=== PATIENT | male | born 1970 | race Caucasian/White ===

== ENCOUNTER 2019-01-09 21:57 | Inpatient (IN) | payer MEDICARE, OTHER ==
[~2019-01-09] VITALS: Ht 180.3 cm; Wt 64.5 kg
[~2019-01-09 21:57] MED LIST: Amoxicillin500 MG PO; NAPR550 PO; Peridex480 ML PO
[2019-01-09 22:25] LABS: Calcium, Ionized (POC) 1.15 mmol/L (1.10-1.46); Chloride (POC) 101 mmol/L (98-108); Creatinine (POC) 1.4 mg/dL (0.8-1.3); Glucose (ISTAT POC) 127 mg/dL (70-99); Hemoglobin (POC) 13.6 g/dL (13.5-17.5); Potassium (POC) 3.5 mmol/L (3.5-5.5); Sodium (POC) 133 mmol/L (135-148); Total CO2 (POC) 19 mmol/L (21-32)
[2019-01-09 22:38] LABS: Hemoglobin 12.7 g/dL (13.5-17.5); Mean Corpuscular HGB Conc 33.4 g/dL (31.5-36.5); Mean Corpuscular Volume 90 fL (80-100); Mean Platelet Volume 9.9 fL (9.1-12.4); Platelet Count 234 K/mm3 (150-400); RDW Coefficient Variation 13.9 % (11.7-14.2); RDW Standard Deviation 45.7 fL (35.1-46.3); Red Blood Cell Count 4.23 M/mm3 (4.30-5.90)
[2019-01-09 22:53] LABS: International Normalized Ratio 0.98; Prothrombin Time Results 10.4 Sec (9.7-11.5)
[2019-01-09 22:58] LABS: Alanine Aminotransfer (ALT/SGP 35 U/L (12-78); Albumin, Blood 3.2 g/dL (3.4-5.0); Albumin/Globulin Ratio 0.9 (0.8-1.8); Alk Phos 133 U/L (50-136); Anion Gap 10 mmol/L (6-16); Aspartate Aminotrans (AST/SGOT 22 U/L (12-37); Bilirubin, Total 0.8 mg/dL (0.1-1.0); Blood Urea Nitrogen 14 mg/dL (8-24); Bun/Creatinine Ratio 12.1 (12.0-20.0); CHOL/HDL RATIO 2.3; CO2, Blood 23 mmol/L (21-32); Chloride, Blood 104 mmol/L (98-108); Cholesterol 159 mg/dL (50-200); Creatinine, Blood 1.16 mg/dL (0.60-1.20); Globulin, Blood 3.5 g/dL (2.2-4.0); Glomerular Filtration Rate >60 (60-); Glucose, Blood 126 mg/dL (70-99); HDL Cholesterol 68 mg/dL (>39); LDL/HDL RATIO 1.2; Low Density Lipoprotein Chol 79 mg/dL (0-110); Magnesium, Blood 1.4 mg/dL (1.6-2.4); Potassium, Blood 3.4 mmol/L (3.5-5.5); Sodium, Blood 137 mmol/L (136-145); Total Protein, Blood 6.7 g/dL (6.4-8.2); Triglycerides 59 mg/dL (30-160); Troponin I 0.196 ng/mL (0.000-0.040); Very Low Density Lipoprot Chol 11 mg/dL (6-32)
--- NOTE | 2019-01-10 02:46 | NUR ---
ARRIVAL TO ICU PT ARRIVED TO ICU AT 0030 FROM CHANNELING MACHINE RUNNER. PT DROWSY, BUT AROUSES EASILY AND IS ORIENTED, CALM AND COOPERATIVE. RADIAL ACCESS SITE C/D/I WITH TR BAND IN PLACE. VITALS STABLE WITH LEVOPHED. PT DOES REPORT CHEST PAIN BUT STATES IT IS IMPROVED. ADMISSION HISTORY AND ASSESSMENT COMPLETED PER PATIENT. PT DOES STATE HE IS ON ANTIBIOTICS FOR VARIOUS UNHEALING SKIN SCABS, BUT CAN'T RECALL THE NAME OR THE DOSE. HE ALSO STOPPED GOING TO A DOCTOR SO NO LONGER TAKES THYROID MEDICATIONS DUE TO LACK OF PRESCRIPTION. THEREFORE, MED REC INCOMPLETE DUE TO LACK OF EXACT INFORMATION. SINCE ARRIVAL TO UNIT, LEVOPHED TITRATED OFF PT MAINTAINING BLOOD PRESSURE MAPS GREATER THAN 65. DR. LITTLE HAS BEEN BY TO SEE HIM POSTOP. DR. SON CONSULTED AND HAS ALSO BEEN TO BEDSIDE. REPEAT EKG PER ORDERS COMPLETED, SEE PAPER CHART. PT REQUESTING JUICE, PROVIDED. SEE FULL ASSESSMENTS AND FLOWSHEETS FOR DETAILS.
[2019-01-10 03:30] LABS: U Amphetamine Screen DETECTED; U Barbituate Screen Not Detected; U Benzodiazapine Screen DETECTED; U Buprenorphine Screen Not Detected; U Cannabinoids Screen DETECTED; U Cocaine Screen Not Detected; U Methadone Screen Not Detected; U Methamphetamine Screen DETECTED; U Opiates Screen Not Detected; U Oxycodone Screen Not Detected; U Phencyclidine Screen Not Detected; U Propoxyphene Screen Not Detected
--- NOTE | 2019-01-10 05:00 | NUR ---
SKIN SPOKE WITH DR SON PT REPORST HE HAS BEEN TAKING ANTIBIOTICS FOR RECURRENT SCABS ON SKIN BUT DOES NOT KNOW THE NAME OF THE ANTIBIOTICS. DR. SON TO BEDSIDE TO ASSESS SKIN. NO NEW ORDERS.
--- NOTE | 2019-01-10 06:30 | NUR ---
SUMMARY SINCE PREVIOUS NOTE, PT HAS SLEPT, AROUSING EASILY FOR REASSESSMENTS. PT HAS DENIED CHEST PAIN OR SHORTNESS OF BREATH SINCE PREVIOUS NOTE. RR ELEVATED, 02 SATS GREATER THAN 90 ON ROOM AIR. LEVOPHED OFF, VITALS STABLE. HR CONTINUES TO BE 110'S. TR BAND REMOVED WITH NO COMPLICATIONS, CLEAR DRESSING PLACED. PT EDUCATED ON RESTRICTIONS. PT HAS USED URINAL IN BED FOR ELIMINATION HE REPORTS FEELING WEAK. DECREASED URINE OUTPUT, NORMAL SALINE INFUSING AT 150 ML/HR. OTHERWISE, NO CHANGES FROM INITIAL ASSESSMENTS.
--- NOTE | 2019-01-10 06:58 | NUR ---
REPORT TO KARIN SAVAGE TO ASSUME CARE
--- NOTE | 2019-01-10 07:15 | NUR ---
ASSUMED CARE OF PATIENT; SEE ASSESSMENT CHARTING FOR DETAILS. PATIENT SLEEPY; ROUSES TO VERBAL STIMULI BUT DRIFTS OFF TO SLEEP WHEN NOT DISTURBED; ORIENTED AND COOPERATIVE; DENIES ACUTE DISCOMFORT. MONITOR NSR TO ST WITH RATE MOSTLY LOW 100'S; SBP HIGH 80'S TO LOW 100'S; MAP 60'S. LOW GRADE FEVER (100.4); ROOM TEMP. REDUCED AND EXTRA BLANKETS REMOVED. VOIDED 300+ OF MED. QUINTON URINE INTO URINAL. TR BAND SITE TO R WRIST INTACT; NO DRAINAGE, SWELLING OR HEMATOMA; DRESSING D/I AND ARMBOARD IN PLACE.
--- NOTE | 2019-01-10 09:50 | NUR ---
DR. LITTLE HERE (INTERVENTIONALIST); WANTS PATIENT TO REMAIN IN HOSPITAL ANOTHER DAY BUT CAN BE TRANSFERRED TO A STEP DOWN UNIT (PCU); SEE FURTHER ORDERS.
[2019-01-10 10:10] LABS: BASOPHILS ABSOLUTE AUTO 0.01 K/mm3 (0.00-0.23); BASOPHILS PERCENT AUTO 0 % (0-2); EOSINOPHILS ABSOLUTE AUTO 0.27 K/mm3 (0.00-0.68); EOSINOPHILS PERCENT AUTO 7 % (0-6); Hemoglobin 11.3 g/dL (13.5-17.5); IMMATURE GRAN ABSOLUTE AUTO 0.07 K/mm3 (0.00-0.10); IMMATURE GRAN PERCENT AUTO 2 % (0-1); LYMPHOCYTES ABSOLUTE AUTO 0.09 K/mm3 (0.84-5.20); LYMPHOCYTES PERCENT AUTO 2 % (21-46); MONOCYTES ABSOLUTE AUTO 0.18 K/mm3 (0.16-1.47); MONOCYTES PERCENT AUTO 5 % (4-13); Mean Corpuscular HGB 30.4 pg (26.0-34.0); Mean Corpuscular HGB Conc 34.2 g/dL (31.5-36.5); Mean Corpuscular Volume 89 fL (80-100); Mean Platelet Volume 9.8 fL (9.1-12.4); NEUTROPHILS ABSOLUTE AUTO 3.42 K/mm3 (1.96-9.15); NEUTROPHILS PERCENT AUTO 85 % (41-73); Platelet Count 161 K/mm3 (150-400); RDW Coefficient Variation 13.7 % (11.7-14.2); Red Blood Cell Count 3.72 M/mm3 (4.30-5.90); White Blood Cell Count 4.04 K/mm3 (4.00-11.30)
[2019-01-10 10:27] LABS: Alanine Aminotransfer (ALT/SGP 58 U/L (12-78); Albumin, Blood 2.4 g/dL (3.4-5.0); Albumin/Globulin Ratio 0.8 (0.8-1.8); Alk Phos 90 U/L (50-136); Anion Gap 10 mmol/L (6-16); Aspartate Aminotrans (AST/SGOT 193 U/L (12-37); Bilirubin, Total 0.7 mg/dL (0.1-1.0); Blood Urea Nitrogen 15 mg/dL (8-24); Bun/Creatinine Ratio 15.4 (12.0-20.0); CO2, Blood 18 mmol/L (21-32); Calcium, Blood 7.3 mg/dL (8.5-10.1); Chloride, Blood 105 mmol/L (98-108); Creatinine, Blood 0.98 mg/dL (0.60-1.20); Globulin, Blood 2.9 g/dL (2.2-4.0); Glomerular Filtration Rate >60 (60-); Glucose, Blood 109 mg/dL (70-99); Magnesium, Blood 1.8 mg/dL (1.6-2.4); Potassium, Blood 4.6 mmol/L (3.5-5.5); Sodium, Blood 133 mmol/L (136-145); Total Protein, Blood 5.3 g/dL (6.4-8.2)
--- NOTE | 2019-01-10 14:13 | NUR ---
T/C FROM LAB TO INFORM RN THAT PATIENT HAS CRITICAL LAB VALUE: TOPONIN LEVEL UP TO 64.6. R/N T/C TO DR. LITTLE; WANTS TROPONIN LEVEL RECHECKED IN AM; NOT WORRIED; THINKS READING SHOULD PEAK BY 2400 AND THEN WILL START TRENDING DOWN.
--- NOTE | 2019-01-10 15:57 | NUR ---
PATIENT'S SBP 70'S TO 80'S AT TIMES; DENIES VERTIGO, NAUSEA ETC BUT REMAINS VERY FATIGUED AND SLEEPS WHEN NOT DISTURBED. FLUIDS ENCOURAGED BY RN. RN INFORMED DR. LITTLE RE: HYPOTENSION, ETC.; NO NEW ORDERS AT THIS TIME.
--- NOTE | 2019-01-10 17:04 | NUR ---
SUMMARY: SLEEPING MOST OF DAY BUT ABLE TO REPOSITION SELF IN BED. LUNGS CLEAR AND BIOX. HIGH 90'S ON ROOM AIR. VOIDING MED. AMOUNTS OF URINE. IVF'S COMPLETED; ORAL FLUIDS ENCOURAGED. DENIES CHEST PAIN. SBP IMPROVED AFTERNOON HAS PROGRESSED. REMAINS PCU STATUS BUT NO ROOMS AVAILABLE AT THIS TIME.
--- NOTE | 2019-01-10 19:30 | NUR ---
ASSUMED CARE OF PT, REPORT RCV'D FROM KARIN CORTEZ. PT ALERT AND ORIENTED, COMPLAINING OF 8/10 HEADACHE PAIN. PT DENIES CHEST PAIN OR NAUSEA. VSS. NSR. RIGHT RADIAL ACCESS SITE SOFT, NONTENDER, NO EVIDENCE OF HEMATOME. ARMBOARD IN PLACE AND PT REMINDED TO MINIMIZE MOVEMENT. SEE FULL SHIFT ASSESSMENT.
--- NOTE | 2019-01-10 20:00 | NUR ---
PT'S SIGNIFICANT OTHER (MEHRDAD) CALLED AND WAS UPDATED WITH PT'S STATUS AND PLAN FOR PT TO BE DISCHARGED TOMORROW.
[2019-01-11 04:20] LABS: Hematocrit 35.8 % (37.0-53.0); Hemoglobin 12.4 g/dL (13.5-17.5); Mean Corpuscular HGB 30.3 pg (26.0-34.0); Mean Corpuscular HGB Conc 34.6 g/dL (31.5-36.5); Mean Corpuscular Volume 88 fL (80-100); Mean Platelet Volume 10.7 fL (9.1-12.4); Platelet Count 114 K/mm3 (150-400); RDW Coefficient Variation 13.8 % (11.7-14.2); Red Blood Cell Count 4.09 M/mm3 (4.30-5.90); White Blood Cell Count 3.05 K/mm3 (4.00-11.30)
[2019-01-11 04:41] LABS: Anion Gap 7 mmol/L (6-16); Blood Urea Nitrogen 14 mg/dL (8-24); Bun/Creatinine Ratio 16.3 (12.0-20.0); CO2, Blood 21 mmol/L (21-32); Calcium, Blood 7.7 mg/dL (8.5-10.1); Chloride, Blood 109 mmol/L (98-108); Creatinine, Blood 0.86 mg/dL (0.60-1.20); Glomerular Filtration Rate >60 (60-); Glucose, Blood 88 mg/dL (70-99); Magnesium, Blood 2.1 mg/dL (1.6-2.4); Sodium, Blood 137 mmol/L (136-145)
--- NOTE | 2019-01-11 06:03 | NUR ---
SHIFT SUMMARY NO ACUTE CHANGES OVERNIGHT. PT CONTINUES TO DENY NEEDS. NO C/O CHEST PAIN, NAUSEA/VOMITING. RIGHT RADIAL ACCESS SITE REMAINS UNCHANGED, SOFT/NON-TENDER. PT STILL HAS DECREASED APPETITE BUT INCREASED AMOUNT OF ORAL FLUIDS WITH ADEQUATE URINARY OUTPUT. VSS. WILL REPORT TO DAYSHIFT NURSE.
--- NOTE | 2019-01-11 18:07 | NUR ---
PT ARRIVED TO THE MEDICAL FLOOR FROM THE ICU AROUND 1730, A/OX3, COOPERATIVE, THE PT APPEARS TO BE BREATHING EASILY ON RA, TELE WAS APPLIED, THE PT WAS ORIENTED TO THE ROOM LAYOUT AND CALL SYSTEM, CALL LIGHT IN REACH, I AGREE WITH THE AM ASSESSMENT PERFORMED BY THE PARTS BACK COUNTER MAN
--- NOTE | 2019-01-12 04:00 | NUR ---
SHIFT SUMMARY PT IS ALERT, ORIENTED AND INDEPENDENT. NO COMPLAINTS OF CHEST PAIN NOTED THIS SHIFT. NO CALLS FROM TELEMETRY WERE RECIEVED BY THIS RN. PT DID COMPLAIN OF A BOUT OF DIARRHEA WHICH HE CONTRIBUTED TO THE FOOD. THE PT STATED THAT WHEN HE WIPED AFTER THE DIARRHEA, THERE WAS A SMEAR OF BLOOD ON THE TOILET PAPER. THIS RN WASN'T ABLE TO VERIFY IT THE CONTENTS OF THE TOILET BOWL APPEARED YELLOW ONLY. A HAT WAS PLACED TO CATCH THE NEXT BM, SO FURTHER ASSESSMENT COULD BE MADE. NO OTHER COMPLAINTS FROM THE PT AT THIS TIME. WILL CONTINUE TO MONITOR.
[2019-01-12 09:32] LABS: Hematocrit 39.3 % (37.0-53.0); Hemoglobin 13.5 g/dL (13.5-17.5); Mean Corpuscular HGB 29.5 pg (26.0-34.0); Mean Corpuscular HGB Conc 34.4 g/dL (31.5-36.5); Mean Corpuscular Volume 86 fL (80-100); Mean Platelet Volume 12.3 fL (9.1-12.4); Platelet Count 100 K/mm3 (150-400); RDW Coefficient Variation 13.7 % (11.7-14.2); Red Blood Cell Count 4.58 M/mm3 (4.30-5.90); White Blood Cell Count 2.93 K/mm3 (4.00-11.30)
[2019-01-12 09:52] LABS: BAND PERCENT MAN 8 % (0-8); BASOPHILS PERCENT MAN 0 % (0-2); EOSINOPHILS ABSOLUTE MAN 0.35 K/mm3 (0.00-0.68); EOSINOPHILS PERCENT MAN 12 % (0-6); LYMPHOCYTES ABSOLUTE MAN 1.11 K/mm3 (0.84-5.20); LYMPHOCYTES PERCENT MAN 38 % (21-46); MONOCYTES ABSOLUTE MAN 0.29 K/mm3 (0.16-1.47); MONOCYTES PERCENT MAN 10 % (4-13); NEUTROPHILS ABSOLUTE MAN 1.17 K/mm3 (1.96-9.15); SEG NEUTROPHILS PERCENT MAN 32 % (41-73); TOTAL CELLS COUNTED 100
[2019-01-12] MEDS ORDERED: ATOR40TA PO (13:02)
[2019-01-12] MEDS ORDERED: Aspirin EC81 MG PO (13:02)
[2019-01-12] MEDS ORDERED: CLOP75 PO (13:02)
[2019-01-12] MEDS ORDERED: Toprol Xl25 MG PO (13:03)
[2019-01-12] MEDS ORDERED: LISI5 PO (13:03)
[2019-01-12] MEDS ORDERED: NITR.4SL SL (13:06)
--- NOTE | 2019-01-12 14:31 | NUR ---
DISCHARGE INSTRUCTIONS COMPLETTED AND DISCUSSED WITH PT EXPRESSING UNDERSTANDING. ANXIOUS THAT [facility] NOT ORDERED AND THAT AN MD HAD SAID HE WOULD. SPOKE WITH BOTH BAKERY TEAM MEMBER AND HOSPITALIST AND DID RECEIVE A SCRIPT FOR DISCHARGE AND RECOMMENDATION TO FOLLOW UP WITH PCP FOR FILLING A FULL ORDER. DENIED CHEST PAIN THROUGH DAY. POLO MANN FROM [facility] IN TO SEE PT AND ARRANGEMENTS MADE FOR PT TO BE SEEN AFTER 1700 TODAY AT HIS HOME TO BE FITTED WITH [facility]. FOLLOW UP APPT MADE WITH BAKERY TEAM MEMBER OFFICE AND NEW PCP APPT MADE BY [facility] AFTER PT DISCHARGED AND HIS PHONE TO BE CALLED TO GIVE INFORMATION. TO CUR[facility] VIA W/C AFTER [facility] TAXI CALLED FOR RIDE WITH A SIDE TRIP TO [facility] FOR SCRIPTS.
== END 2019-01-12 14:10 | disposition home or self-care (01) | DRG 246 ==
LOC: ER 21:57 → ICUW 22:20 → ER 22:20 → ICUW 22:49 → MEDS 01-11 16:36 → ICUW 01-11 16:36 → ENPENDDIS 01-12 11:30 → MEDS 01-12 14:10
PROVIDERS: Emergency Medicine; ADMIT Internal Medicine Interventional Cardiology
PROC: 4A023N7 Measurement of Cardiac Sampling and Pressure, Left Heart, Percutaneous Approach (ICD-10-PCS; principal; 2019-01-09)
PROC: 027034Z Dilation of Coronary Artery, One Artery with Drug-eluting Intraluminal Device, Percutaneous Approach (ICD-10-PCS; 2019-01-09)
PROC: B210YZZ Fluoroscopy of Single Coronary Artery using Other Contrast (ICD-10-PCS; 2019-01-09)
DX: I21.29 ST elevation (STEMI) myocardial infarction involving other sites (principal); I50.21 Acute systolic (congestive) heart failure; I47.1 Supraventricular tachycardia; I11.0 Hypertensive heart disease with heart failure; F17.210 Nicotine dependence, cigarettes, uncomplicated; I77.810 Thoracic aortic ectasia; J43.9 Emphysema, unspecified; E05.90 Thyrotoxicosis, unspecified without thyrotoxic crisis or storm; F15.99 Other stimulant use, unspecified with unspecified stimulant-induced disorder; E83.42 Hypomagnesemia
CPT/HCPCS: 36415; 71045; 80047; 80048; 80053; 80061; 82565; 83036; 83735; 84439; 84443; 84484; 85014; 85025; 85027; 85347; 85610; 85730; 86850; 86900; 86901; 92978; 93005; 93010; 93306; 93458; 96374; 99152; 99153; 99285-25; C1725; C1751; C1753; C1769; C1874; C1887; C1894; C9606; G0480; J1644; J1650; J2250; J3010; J3475; J7030; J7050; Q9967

== ENCOUNTER 2019-01-30 21:23 | Inpatient (IN) | payer MEDICARE, OTHER ==
[~2019-01-30] VITALS: Ht 180.3 cm; Wt 62.6 kg
[~2019-01-30 21:23] MED LIST changes: +ATOR40TA PO; +Aspirin EC81 MG PO; +CLOP75 PO; +LISI5 PO; +NITR.4SL SL; +Toprol Xl25 MG PO
[2019-01-30 21:56] LABS: BASOPHILS PERCENT AUTO 0 % (0-2); EOSINOPHILS ABSOLUTE AUTO 0.01 K/mm3 (0.00-0.68); EOSINOPHILS PERCENT AUTO 1 % (0-6); Hematocrit 37.9 % (37.0-53.0); Hemoglobin 12.8 g/dL (13.5-17.5); IMMATURE GRAN PERCENT AUTO 0 % (0-1); LYMPHOCYTES ABSOLUTE AUTO 1.34 K/mm3 (0.84-5.20); LYMPHOCYTES PERCENT AUTO 84 % (21-46); MONOCYTES ABSOLUTE AUTO 0.01 K/mm3 (0.16-1.47); MONOCYTES PERCENT AUTO 1 % (4-13); Mean Corpuscular HGB Conc 33.8 g/dL (31.5-36.5); Mean Corpuscular Volume 89 fL (80-100); NEUTROPHILS ABSOLUTE AUTO 0.24 K/mm3 (1.96-9.15); NEUTROPHILS PERCENT AUTO 15 % (41-73); Platelet Count 266 K/mm3 (150-400); RDW Coefficient Variation 13.6 % (11.7-14.2); RDW Standard Deviation 44.3 fL (35.1-46.3); Red Blood Cell Count 4.27 M/mm3 (4.30-5.90)
[2019-01-30 22:10] LABS: International Normalized Ratio 0.97; Prothrombin Time Results 10.3 Sec (9.7-11.5)
[2019-01-30 22:15] LABS: Troponin I <0.015 ng/mL (0.000-0.040)
[2019-01-30 22:16] LABS: Alanine Aminotransfer (ALT/SGP 31 U/L (12-78); Albumin, Blood 3.3 g/dL (3.4-5.0); Albumin/Globulin Ratio 0.9 (0.8-1.8); Alk Phos 154 U/L (50-136); Anion Gap 11 mmol/L (6-16); Aspartate Aminotrans (AST/SGOT 30 U/L (12-37); Bilirubin, Total 0.6 mg/dL (0.1-1.0); Blood Urea Nitrogen 14 mg/dL (8-24); Bun/Creatinine Ratio 14.6 (12.0-20.0); CO2, Blood 23 mmol/L (21-32); Calcium, Blood 8.7 mg/dL (8.5-10.1); Chloride, Blood 107 mmol/L (98-108); Creatinine, Blood 0.96 mg/dL (0.60-1.20); Globulin, Blood 3.6 g/dL (2.2-4.0); Glomerular Filtration Rate >60 (60-); Glucose, Blood 115 mg/dL (70-99); Potassium, Blood 3.7 mmol/L (3.5-5.5); Sodium, Blood 141 mmol/L (136-145); Total Protein, Blood 6.9 g/dL (6.4-8.2)
[2019-01-30 23:34] LABS: Base Excess Venous -5.1 mmol/L; Bicarbonate Venous 19.6 mmol/L (24.0-30.0); PCO2 Venous 48 mmHg (38-42); PO2 Venous 41.5 mmHg (38-42); pH Blood Venous 7.27 (7.34-7.37)
--- NOTE | 2019-01-31 01:00 | NUR ---
REPORT RECEIVED FROM ERIKA BREWER RN.
--- NOTE | 2019-01-31 02:34 | NUR ---
ARRIVAL TO ICU/PROVIDER COMMUNICATION PT ARRIVED TO ICU 14 PCU STATUS APPROX 0114. PT ORIENTED BUT DROWSY. DENIES CHEST PAIN OR DISCOMFORT AT THIS TIME. BP LOW, RR ELEVATED, PT FEBRILE. SEE FLOWSHEET. PT REPORTS HE CONTINUES TO SMOKE METH BECAUSE "THE DOCTORS WON'T HELP ME WITH MY PAIN. IT ALSO HELPS ME BREATH, IT OPENS MY AIRWAY UP." CONFIRMED CODE STATUS WITH PT FOR FULL CODE. PT ALSO STATES "I LOST A FEW DAYS, I DON'T KNOW WHAT HAPPENED," WHEN ASKED ABOUT VARIOUS BRUISES AND RED SKIN THAT APPERAS TO BE A SUNBURN. LR BOLUS FINISHED FROM ER, PT CONTINUES TO BE HYPOTENSIVE. DR. RODRIGUEZ NOTIFIED. NEW ORDER FOR ANOTHER BOLUS AND TO CHANGE PT TO ICU STATUS.
--- NOTE | 2019-01-31 03:46 | NUR ---
UPDATE SINCE PREVIOUS NOTE, LEVOPHED STARTED PERIPHERALLY. DR. RODRIGUEZ TO BEDSIDE FOR CENTRAL LINE INSERTION. AWAITING CHEST XRAY CONFIRMATION. PT REMAINS DROWSY BUT ORIENTED. REPORTS SLIGHT DIZZINESS. HR 90'S NSR WITH OCCASIONAL PACS.
--- NOTE | 2019-01-31 04:38 | NUR ---
PROVIDER COMMUNICATION PER JB GUARDADO TO USE CENTRAL LINE. LEVOPHED TRANSFERRED FROM PERIPHERAL AND TITRATED.
--- NOTE | 2019-01-31 05:12 | NUR ---
HYPOTENSION CALL TO DR RODRIGUEZ REGARDING HYPOTENSION AND LEVOPHED UP TO 20 MCQ/MIN. OBTAINED ORDER FOR DOBUTAMINE GTT AND WEAN OFF LEVOPHED.
[2019-01-31 05:16] LABS: Creatine Kinase MB 2.1 ng/mL (0.0-3.6); Creatine Kinase MB Index 0.8 (0.0-4.0)
[2019-01-31 05:44] LABS: Hematocrit 29.2 % (37.0-53.0); Hemoglobin 9.9 g/dL (13.5-17.5); Mean Corpuscular HGB 29.7 pg (26.0-34.0); Mean Corpuscular HGB Conc 33.9 g/dL (31.5-36.5); Mean Corpuscular Volume 88 fL (80-100); Mean Platelet Volume 10.4 fL (9.1-12.4); Platelet Count 202 K/mm3 (150-400); RDW Coefficient Variation 13.8 % (11.7-14.2); RDW Standard Deviation 44.3 fL (35.1-46.3); Red Blood Cell Count 3.33 M/mm3 (4.30-5.90); White Blood Cell Count 4.32 K/mm3 (4.00-11.30)
--- NOTE | 2019-01-31 05:50 | NUR ---
PAIN CALL TO DR RODRIGUEZ REGARDING HYPOTENSION WITH LEVOPHED AT 30 MCQ/MIN AND DOBUTAMINE AT 10. ALSO, SPOKE WITH DOCTOR REGARDING PT PAIN TO NECK, BACK AND CHEST. OBTAINED ORDERS FOR NS BOLUS AND FENTANYL
[2019-01-31 06:14] LABS: Alanine Aminotransfer (ALT/SGP 58 U/L (12-78); Albumin, Blood 2.4 g/dL (3.4-5.0); Alk Phos 97 U/L (50-136); Anion Gap 6 mmol/L (6-16); Aspartate Aminotrans (AST/SGOT 77 U/L (12-37); Blood Urea Nitrogen 16 mg/dL (8-24); Bun/Creatinine Ratio 13.2 (12.0-20.0); CO2, Blood 20 mmol/L (21-32); Calcium, Blood 7.4 mg/dL (8.5-10.1); Chloride, Blood 113 mmol/L (98-108); Creatinine, Blood 1.21 mg/dL (0.60-1.20); Globulin, Blood 2.5 g/dL (2.2-4.0); Glomerular Filtration Rate >60 (60-); Glucose, Blood 119 mg/dL (70-99); Potassium, Blood 3.6 mmol/L (3.5-5.5); Sodium, Blood 139 mmol/L (136-145)
--- NOTE | 2019-01-31 06:20 | NUR ---
UPDATE PT REPORTS IMPROVED PAIN TO NECK, SHOULDERS AND BACK AFTER FENTANYL ADMIN. PT RESTING ON AND OFF, CONTINUES TO BE ORIENTED. BP MANAGED WITH LEVOPHED AND DOBUTAMINE.
[2019-01-31 06:24] LABS: Total Protein, Blood 4.9 g/dL (6.4-8.2)
--- NOTE | 2019-01-31 06:49 | NUR ---
DR. RODRIGUEZ AT BEDSIDE DR. RODRIGUEZ AT BEDSIDE FOR REPEAT ASSESSMENT. NEW ORDER FOR FOOD STAND MANAGER CONSULT, ECHO, ZOSYN AND TO CONTINUE WITH CURRENT PRESSORS TO MAINAIN MAP OF 60.
--- NOTE | 2019-01-31 07:13 | NUR ---
REPORT TO KARIN ZHAO TO ASSUME CARE
[2019-01-31 09:01] LABS: Source, Urine Clean Catch
[2019-01-31 09:09] LABS: Bilirubin, Urine Neg (Neg); Blood, Urine Neg (Neg); Glucose Qualitative, Urine Neg (Neg); Ketones, Urine Neg (Neg); Leukocyte Esterase, Urine 1+ (Neg); Nitrite, Urine Neg (Neg); Protein, Urine 1+ (Neg); Urobilinogen, Urine NORM (Normal)
[2019-01-31 09:31] LABS: Base Excess Venous -11.7 mmol/L; Bicarbonate Venous 16.4 mmol/L (24.0-30.0); PCO2 Venous 21.9 mmHg (38-42); PO2 Venous 99.6 mmHg (38-42); pH Blood Venous 7.39 (7.34-7.37)
[2019-01-31 09:31] LABS: U Amphetamine Screen DETECTED; U Barbituate Screen Not Detected; U Benzodiazapine Screen DETECTED; U Buprenorphine Screen Not Detected; U Cannabinoids Screen DETECTED; U Cocaine Screen Not Detected; U Methadone Screen Not Detected; U Methamphetamine Screen DETECTED; U Opiates Screen Not Detected; U Oxycodone Screen Not Detected; U Phencyclidine Screen Not Detected; U Propoxyphene Screen Not Detected
[2019-01-31 09:37] LABS: Appearance, Urine Clear (Clear); Color, Urine Yellow (P-Yellow)
[2019-01-31 09:38] LABS: Bacteria Rare /hpf; Red Blood Cells, Urine 0-2 /hpf (0-2); Squamous Epithelial Cells Not Seen /hpf (Few); White Blood Cells, Urine 0-2 /hpf (0-5)
--- NOTE | 2019-01-31 11:06 | NUR ---
Echocardiogram completed.
--- NOTE | 2019-01-31 11:06 | NUR ---
0800 PT IS NOTED FEBRILE, ON LEVOPHED GTT AT 30 MCG AND NS AT 75ML. PT VS NOTED AND WILL TIRTATE PRESSOR FOLLOWS. PT HAS RIJ LINE AND PERIPHERAL LINES NOTED. PT IF C/O BACK OF NECK PAIN BUT IS IMPROVED WITH MOVEMENT. PT IS VOIDING AND ORANGE, QUITE CONSENTRATED. O2 IS AT 4L AND PT RR IS 26-30. DR STEVENSON IN IS AND ASSESSING PT, ORDERD TO FOLLOW NOTED.
--- NOTE | 2019-01-31 11:52 | NUR ---
WITH IV BOLUS, PT HAS TOLERATED LEVOPHED GTT DEC TO 20MCG AND WILL CONT TO FOLLOW. PT HAS NOT YET VOIDED FROM EARLIER THIS SHIFT BUT WILL MONITOR. ABX AND FLUIDS HAVE BEEN GIVEN. L.A. LEVEL HAS BEEN NOTED AND REPORTED WITH ORDER CHANGES.
[2019-01-31 14:49] LABS: Troponin I 0.039 ng/mL (0.000-0.040)
--- NOTE | 2019-01-31 15:20 | NUR ---
PT IS RESTING BUT SL RESTLESS IN BED. PT BP IS IMPROVED ON LEVOPHED GTT AT 10MCG NOTED. PT HAS BEEN REFUSING FOOD BUT HAS HAD NO N/V/D THIS SHIFT.
[2019-01-31 16:13] LABS: BASOPHILS PERCENT AUTO 0 % (0-2); Hematocrit 30.8 % (37.0-53.0); Hemoglobin 10.4 g/dL (13.5-17.5); LYMPHOCYTES ABSOLUTE AUTO 0.24 K/mm3 (0.84-5.20); LYMPHOCYTES PERCENT AUTO 4 % (21-46); MONOCYTES ABSOLUTE AUTO 0.12 K/mm3 (0.16-1.47); MONOCYTES PERCENT AUTO 2 % (4-13); Mean Corpuscular HGB 29.8 pg (26.0-34.0); Mean Corpuscular HGB Conc 33.8 g/dL (31.5-36.5); Mean Corpuscular Volume 88 fL (80-100); Mean Platelet Volume 10.5 fL (9.1-12.4); Platelet Count 175 K/mm3 (150-400); RDW Coefficient Variation 13.6 % (11.7-14.2); RDW Standard Deviation 43.8 fL (35.1-46.3); Red Blood Cell Count 3.49 M/mm3 (4.30-5.90); White Blood Cell Count 6.47 K/mm3 (4.00-11.30)
[2019-01-31 16:17] LABS: EOSINOPHILS ABSOLUTE AUTO 0.23 K/mm3 (0.00-0.68); EOSINOPHILS PERCENT AUTO 4 % (0-6); IMMATURE GRAN ABSOLUTE AUTO 0.07 K/mm3 (0.00-0.10); IMMATURE GRAN PERCENT AUTO 1 % (0-1); NEUTROPHILS ABSOLUTE AUTO 5.81 K/mm3 (1.96-9.15); NEUTROPHILS PERCENT AUTO 90 % (41-73)
[2019-01-31 16:35] LABS: Anion Gap 8 mmol/L (6-16); Blood Urea Nitrogen 16 mg/dL (8-24); CO2, Blood 17 mmol/L (21-32); Calcium, Blood 6.7 mg/dL (8.5-10.1); Chloride, Blood 113 mmol/L (98-108); Creatinine, Blood 1.07 mg/dL (0.60-1.20); Glomerular Filtration Rate >60 (60-); Glucose, Blood 105 mg/dL (70-99); Magnesium, Blood 1.3 mg/dL (1.6-2.4); Phosphorus, Blood 2.3 mg/dL (2.5-4.9); Sodium, Blood 138 mmol/L (136-145)
--- NOTE | 2019-01-31 17:34 | NUR ---
PT HAS BEEN RESTLESS AND MOVING SELF IN BED ALL SHIFT. PT ASKED FOR SLEEPING MED FOR NOC AND OBTAINED. VSS AND LEVOPHED GTT AT 4MCG. O2 DEC TO 2L WITH SATS BEING ELEVATED. PT IS VOIDING AND URINE HAS LIGHTENED TO YELLOW COLOR AFTER AM BOLUSES.
--- NOTE | 2019-01-31 19:15 | NUR ---
ASSUMED CARE OF PT, REPORT RECEIVED. LEVOPHED CURRENTLY AT 4 MCG/MIN VIA INFUSION PUMP TO RIGHT IJ, NORMAL SALINE AT 100 ML/HR, ZOSYN INFUSING AT 25 ML/HR. PT IS NOTED MOAINING ON ARRIVAL TO ROOM, REPORTS PAIN 8/10 AND DESCRIBES A GENERALIZED PAIN THAT IS A SHARP ACHE, HE STATES HE DOES NOT NOTICE ANYTHING MAKING THE PAIN EITHER BETTER OR WORSE SINCE ONSET, TEMP IS NOTED INCREASED AT 100.7 AT THIS TIME, WILL ADMIN TYLENOL PO FOR ELEVATED TEMP AND CONT TO MONITOR, WILL ADMIN FENTANYL FOR PAIN. PT DENIES CP/PRESSURE, DENIES INCREASING DYSPNEA/SOB, DENIES N/V, DENIES NUMBNESS/TINGLING. RESP RATE IS NOTED MID 20S, PT DOES ADMIT TO SLIGHT DYSPNEA HOWEVER STATES THAT IT IS ONGOING AND IMPROVED FROM ARRIVAL IN ER, SCATTERED EXPIRATORY WHEEZES ARE NOTED, OXYGEN VIA NC AT 2 L/MIN. HRR, SINUS ON MONITOR, RATE 60-70S AT THIS TIME, PRESSURES ARE IMPROVED PER DAY SHIFT RN, LEVOPHED HAS BEEN TITRATED DOWN THROUGHOUT DAY, PULSES ARE FULL X 4 EXTREMITIES, SKIN IS PWD, CAP REFILL 3 SECONDS, NO EDEMA NOTED. ABD SOFT, HYPERACTIVE BOWEL TONES CONTINUE, PT HAS NOT HAD BM TODAY, NO GRIMACING NOTED WITH PALPATION. IV ACCESS NOTED X 2 PERIPHERAL SITES TO LEFT FOREARM, AND RIGHT IJ, SEE VASCULAR ACCESS CHARTING.
--- NOTE | 2019-01-31 20:30 | NUR ---
SPOKE WITH PT'S MOTHER PT'S MOTHER, RASHIDA SU, CALLED REGARDING PT CONDITION FROM [facility]. PT AWAKENED AND HE GAVE VERBAL CONSENT TO DISCUSS HIS ADMISSION WITH HIS MOTHER. PT'S MOTHER DISCUSSES CONCERN REGARDING PT HOUSING WHEN DISCHARGED. SHE STATES THAT PT'S SIGNIFICANT OTHER OF 30 YEARS "THROWS HIM OUT" WHEN THEY DISAGREE AND THAT PT IS FREQUENTLY HOMELESS A RESULT. MOTHER STATES THAT SHE IS 500 MILES AWAY AND UNABLE TO ASSIST PATIENT AND PT IS UNABLE TO RETURN TO [facility] SECONDARY TO HAVING A WARRANT OUT FOR HIS ARREST.
--- NOTE | 2019-01-31 21:20 | NUR ---
PT ARRIVES TO ROOM ICU 13 VIA GURNEY FROM ER. ARRIVES WITH BILAT SOFT WRIST RESTRAINTS IN PLACE AND SEIZURE PADS ON ER GURNEY RAILS. PER CHIEF DEPUTY CORONER, SEIZURE PADS WERE PLACED TO PREVENT PT FROM GETTING ARMS AND/OR LEGS THROUGH RAILINGS WITH RESTLESSNESS. SHE IS NOTED AGITATED AND ATTEMPTING TO ROLL SIDE TO SIDE WITHOUT REGARD TO BEDRAILS, EDGE OF BED, OR RISK OF FALLING OUT OF BED ONTO FLOOR. SHE RARELY OPENS HER EYES, DOES NOT FOLLOW DIRECTIONS, DOES NOT REDIRECT AT THIS TIME, FAMILY IN TO ROOM FROM ICU WAITING FOR IMPROVED PT COMFORT, PT CONTINUES RESTLESS WITH FAMILY AT BEDSIDE. LUNGS ARE NOTED CLEAR THROUGHOUT, NO INCREASED WORK OF BREATHING NOTED AT THIS TIME, SATS MID TO HIGH 90S ON ROOM AIR, RESP RATE MID 20S WITH AGITATION. HRR, SINUS ON MONITOR, PRESSURE MAINTAINING, PULSES FULL X 4 EXTREMITIES, CAP REFILL BRISK, HYPERPIGMENTATION IS NOTED BILAT LOWER EXTREMITITES MID SHINS TO FEET, NO EDEMA, PT IS NOTED JAUNDICED. ABD DISTENDED, ACTIVE BOWEL TONES X 4, PT DOES PASS FLATUS AT TIMES, NO INCREASED GRIMACING OR RESTLESSNESS WITH ABD PALPATION. IV ACCESS NOTED SALINE LOCK TO LEFT AC, SECOND IV ACCESS OBTAINED TO LEFT FOREARM AT 1 ATTEMPT, PT TOLERATED WELL.
--- NOTE | 2019-01-31 22:00 | NUR ---
PT UP TO BSC WITH 2 ASSIST, CONTINENT OF BOWEL AND BLADDER AT THIS TIME, WILL TRIAL OUT OF RESTRAINTS ON RETURN TO BED.
--- NOTE | 2019-01-31 23:00 | NUR ---
PT FAMILY OUT OF ROOM, TRIAL OUT OF RESTRAINTS UNSUCCESSFUL, BILAT SOFT WRIST RESTRAINTS BACK IN PLACE, PT CONTINUES RESTLESS
--- NOTE | 2019-02-01 00:30 | NUR ---
AGITATION PT CONTINUES ATTEMPTING TO ROLL TO PRONE POSITION AND UP OVER BEDRAILS, IS NOTED TO BE USING FEET LEVERAGE TO PULL AGAINST WRIST RESTRAINTS WITH ARM PULLED BEHIND PT'S BACK, SHE DOES NOT REDIRECT WELL AT THIS TIME, MEDICATIONS HAVE BEEN ADMINISTERED FOR PAIN AND AGITATION, CONCERN FOR SHOULDER AND WRIST INJURY RELATED TO CURRENT BEHAVIOR HOWEVER UNABLE TO SAFELY DC RESTRAINTS AT THIS TIME, BILAT SOFT ANKLE RESTRAINTS APPLIED AND LAST BEDRAIL RAISED. WILL CONT TO MONITOR.
[2019-02-01 04:35] LABS: BASOPHILS ABSOLUTE AUTO 0.01 K/mm3 (0.00-0.23); BASOPHILS PERCENT AUTO 0 % (0-2); Hematocrit 30.3 % (37.0-53.0); Hemoglobin 10.3 g/dL (13.5-17.5); Mean Corpuscular HGB 29.3 pg (26.0-34.0); Mean Corpuscular Volume 86 fL (80-100); Mean Platelet Volume 10.8 fL (9.1-12.4); Platelet Count 126 K/mm3 (150-400); RDW Standard Deviation 43.5 fL (35.1-46.3); Red Blood Cell Count 3.52 M/mm3 (4.30-5.90); White Blood Cell Count 6.19 K/mm3 (4.00-11.30)
[2019-02-01 04:37] LABS: EOSINOPHILS ABSOLUTE AUTO 0.27 K/mm3 (0.00-0.68); EOSINOPHILS PERCENT AUTO 4 % (0-6); IMMATURE GRAN ABSOLUTE AUTO 0.04 K/mm3 (0.00-0.10); IMMATURE GRAN PERCENT AUTO 1 % (0-1); LYMPHOCYTES ABSOLUTE AUTO 0.42 K/mm3 (0.84-5.20); LYMPHOCYTES PERCENT AUTO 7 % (21-46); MONOCYTES ABSOLUTE AUTO 0.18 K/mm3 (0.16-1.47); MONOCYTES PERCENT AUTO 3 % (4-13); NEUTROPHILS ABSOLUTE AUTO 5.27 K/mm3 (1.96-9.15); NEUTROPHILS PERCENT AUTO 85 % (41-73)
[2019-02-01 04:54] LABS: Alanine Aminotransfer (ALT/SGP 100 U/L (12-78); Albumin, Blood 2.1 g/dL (3.4-5.0); Albumin/Globulin Ratio 0.8 (0.8-1.8); Alk Phos 78 U/L (50-136); Anion Gap 5 mmol/L (6-16); Aspartate Aminotrans (AST/SGOT 78 U/L (12-37); Bilirubin, Total 0.9 mg/dL (0.1-1.0); Blood Urea Nitrogen 13 mg/dL (8-24); Bun/Creatinine Ratio 13.9 (12.0-20.0); CO2, Blood 20 mmol/L (21-32); Calcium, Blood 7.1 mg/dL (8.5-10.1); Chloride, Blood 114 mmol/L (98-108); Creatinine, Blood 0.94 mg/dL (0.60-1.20); Globulin, Blood 2.6 g/dL (2.2-4.0); Glomerular Filtration Rate >60 (60-); Glucose, Blood 95 mg/dL (70-99); Magnesium, Blood 2.1 mg/dL (1.6-2.4); Phosphorus, Blood 2.2 mg/dL (2.5-4.9); Potassium, Blood 3.8 mmol/L (3.5-5.5); Sodium, Blood 139 mmol/L (136-145); Total Protein, Blood 4.7 g/dL (6.4-8.2)
--- NOTE | 2019-02-01 06:36 | NUR ---
PT RESTS QUIETLY THROUGHOUT SHIFT, MEDICATED WITH FENTANYL 50 MCG IV X 2 THIS SHIFT FOR GENERALIZED PAIN WITH REPORTED GOOD PAIN CONTROL. LUNGS INTERMITTENTLY WITH EXPIRATORY WHEEZES, OXYGEN TITRATED DOWN TO OFF AND SATS ARE MAINTAINING HIGH 90S AT THIS TIME. LEVOPEHD CONTINUES AT 4 MCG/MIN OF THIS TIME, PRESSURE WAS NOTED TO DECREASE WITH MAGNESIUM SULFATE INFUSION HOWEVER MAP MAINTAINED AT 65-70 WITH SBP 80S, PRESSURE IS IMPROVING FOLLOWING COMPLETION OF MAGNESIUM INFUSION, WILL TITRATE DOWN ABLE. URINE OUTPUT GREATLY IMPROVED, COLOR CLEAR, PALE YELLOW THIS AM. NO BM THIS SHIFT.
--- NOTE | 2019-02-01 10:21 | NUR ---
ASSUMPTIONS OF CARE ASSUMED CARE OF PT @ 0700. PT SLEEPING, EASILY AROUSABLE. PT COMPLAINS OF GENERALIZED BODY PAIN OF 7/10, PRN FENTANYL ADEQUATE FOR PAIN MANAGEMENT. VSS WITH SYSTOLIC BP 116. LEVOPHED DRIP RUNNING @ 4mcg. STRONG PEDAL PULSES PRESENT. PT VOIDING ON OWN USING URINAL. IVx3 PRESENT AND INTACT. PT SKIN IN FLUSHED AND WARM TO THE TOUCH, AFEBRILE. PT BP INCREASING WITH MAP IN 80'S, LEVOPHED TITRATED DOWN TO 2mcg @ 0930, WILL CONTINUE TO TITRATE DOWN TOLERATED. DR WHITLEY AND DR BALESTRATE IN TO SEE PT.
--- NOTE | 2019-02-01 12:38 | NUR ---
DISCUSSED DRUG USE WITH PT. PT STS HE TYPICALLY SMOKES METHAMPHETAMINE AND WILL USE FOR A FEW DAYS FOLLOWED BY A FEW DAYS OF NO USE. PT STS HE HAS USED METHAMPHETAMINE INTRAVENOUSLY WITH LAST IV USE APPROX 2 MONTHS AGO. PT STS HE HAS NEVER GONE THROUGH WITHDRAWALS FROM METHAMPHETAMINE.
--- NOTE | 2019-02-01 18:42 | NUR ---
PT SLEPT T/O SHIFT WITH MINIMAL PO INTAKE. ABLE TO WEAN PT OFF LEVOPHED SINCE 1215, BP REMAINS STABLE WITH MAPS IN 70'S. PT CONTINUES TO COMPLAIN OF VAGUE BODY ACHES, SKIN IS FLUSHED AND WARM TO THE TOUCH T/O SHIFT, PRN FENTANYL AND TYLENOL PROVIDED FOR PAIN MANAGEMENT. PT UP TO BATHROOM TOWARDS END OF SHIFT WITH LIQUID STOOL AND EMESIS X1, ZOFRAN GIVEN, VSS. TEMP 98.7 WITH A TMAX OF 100.4.
--- NOTE | 2019-02-01 19:30 | NUR ---
ASSUMED CARE OF PT, REPORT RECEIVED, IV INFUSIONS VERIFIED WITH OFFGOING RN. PT RESTING QUIETLY AT THIS TIME AND DENIES NEEDS.
--- NOTE | 2019-02-01 20:20 | NUR ---
PT CONT RESTING QUIETLY, DENIES CP/PRESSURE OTHER THAN THE GENERALIZED SHARP ACHING HE IS FEELING THROUGHOUT JOINTS, LEGS, AND BACK AT THIS TIME. DENIES INCREASING SOB/DYSPNEA, DENIES INCREASING N/V. PAIN IS RATED AT 4/10 CURRENTLY, PT AGREEABLE TO TYLENOL ADMINISTRATION AT THIS TIME, WILL MONITOR. HRR, SINUS ON MONITOR WITH OCCASIONAL PACS NOTED, PRESSURE MAINTAINING SYSTOLIC GREATER THAN 100 AND MAP GREATER THAN 65, SKIN IS PWD WITH BRISK CAP REFILL AND PULSES ARE FULL X 4 EXTREMITIES, EDEMA IS IMPROVING. LUNGS ARE CLEAR THROUGHOUT, SATS MAINTAINING ON ROOM AIR, NO INCREASED WORK OF BREATHING IS NOTED AT THIS TIME. ABD SOFT, NO GRIMACING NOTED WITH PALPATION, NO REPORTS OF ABD TENDERNESS, ACTIVE BOWEL TONES X 4. PT IS VOIDING CLEAR PALE YELLOW URINE WITHOUT DIFFICULTY. CENTRAL LINE CONTINUES TO RIGHT IJ, DRESSING REMAINS CDI, SITE WITHOUT REDNESS, SWELLING, OR DRAINAGE.
[2019-02-01 20:49] LABS: Adenovirus F 40/41 Not Detected (NOT DETECT); Astrovirus Not Detected (NOT DETECT); Campylobacter Sp Not Detected (NOT DETECT); Cryptosporidium Not Detected (NOT DETECT); Cyclospora Cayetanensis Not Detected (NOT DETECT); E. Coli O157 Not Detected (NOT DETECT); Entamoeba Histolytica Not Detected (NOT DETECT); Enteroaggregative E. coli-EAEC Not Detected (NOT DETECT); Enteropathogenic E. coli-EPEC Not Detected (NOT DETECT); Enterotoxigenic E. coli-ETEC Not Detected (NOT DETECT); Giardia Lamblia Not Detected (NOT DETECT); Norovirus GI/GII Not Detected (NOT DETECT); Plesiomonas Shigelloides Not Detected (NOT DETECT); Rotavirus A Not Detected (NOT DETECT); Salmonella Sp Not Detected (NOT DETECT); Sapovirus Not Detected (NOT DETECT); Shiga Toxin-prod E. coli-STEC Not Detected (NOT DETECT); Shigella/Enteroin E. coli-EIEC Not Detected (NOT DETECT); Vibrio Cholerae Not Detected (NOT DETECT); Vibrio Sp Not Detected (NOT DETECT); Yersinia Enterocolitica Not Detected (NOT DETECT)
[2019-02-02 03:55] LABS: Hematocrit 29.4 % (37.0-53.0); Hemoglobin 10.1 g/dL (13.5-17.5); Mean Corpuscular HGB 29.4 pg (26.0-34.0); Mean Corpuscular HGB Conc 34.4 g/dL (31.5-36.5); Mean Corpuscular Volume 86 fL (80-100); Mean Platelet Volume 11.2 fL (9.1-12.4); Platelet Count 85 K/mm3 (150-400); RDW Standard Deviation 43.6 fL (35.1-46.3); Red Blood Cell Count 3.44 M/mm3 (4.30-5.90); White Blood Cell Count 5.32 K/mm3 (4.00-11.30)
[2019-02-02 04:05] LABS: Alanine Aminotransfer (ALT/SGP 101 U/L (12-78); Albumin, Blood 2.3 g/dL (3.4-5.0); Albumin/Globulin Ratio 0.8 (0.8-1.8); Alk Phos 79 U/L (50-136); Anion Gap 6 mmol/L (6-16); Aspartate Aminotrans (AST/SGOT 60 U/L (12-37); Bilirubin, Total 1.2 mg/dL (0.1-1.0); Blood Urea Nitrogen 7 mg/dL (8-24); Bun/Creatinine Ratio 8.3 (12.0-20.0); CO2, Blood 21 mmol/L (21-32); Calcium, Blood 7.5 mg/dL (8.5-10.1); Chloride, Blood 115 mmol/L (98-108); Creatinine, Blood 0.85 mg/dL (0.60-1.20); Globulin, Blood 2.8 g/dL (2.2-4.0); Glomerular Filtration Rate >60 (60-); Glucose, Blood 77 mg/dL (70-99); Potassium, Blood 3.7 mmol/L (3.5-5.5); Sodium, Blood 142 mmol/L (136-145); Total Protein, Blood 5.1 g/dL (6.4-8.2)
[2019-02-02 04:15] LABS: BAND PERCENT MAN 25 % (0-8); BASOPHILS PERCENT MAN 0 % (0-2); EOSINOPHILS ABSOLUTE MAN 0.42 K/mm3 (0.00-0.68); EOSINOPHILS PERCENT MAN 8 % (0-6); LYMPHOCYTES ABSOLUTE MAN 0.63 K/mm3 (0.84-5.20); LYMPHOCYTES PERCENT MAN 12 % (21-46); MONOCYTES ABSOLUTE MAN 0.21 K/mm3 (0.16-1.47); MONOCYTES PERCENT MAN 4 % (4-13); NEUTROPHILS ABSOLUTE MAN 4.04 K/mm3 (1.96-9.15); SEG NEUTROPHILS PERCENT MAN 51 % (41-73); TOTAL CELLS COUNTED 100
--- NOTE | 2019-02-02 05:58 | NUR ---
PT RESTS QUIETLY THROUGHOUT SHIFT, PAIN CONTROLLED WITH FENTANYL PRN PER ORDERS. PT DID STATE THIS SHIFT THAT HE USES METH FOR PAIN CONTROL AT HOME. EDUCATION PROVIDED REGARDING THE RISKS OF METH USE TO PATIENT. DISCUSSED THE EFFECTS OF METH ON CARDIOVASCULAR SYSTEM WELL PULMONARY SYSTEM. PT STRONGLY ENCOURAGED TO DISCUSS ALTERNATIVE MEANS OF PAIN CONTROL WITH PRIMARY CARE PHYSICIAN. SATS MAINTAIN ON ROOM AIR THROUGHOUT SHIFT, NO INCREASED WORK OF BREATHING HAS BEEN NOTED, LUNGS HAVE BEEN NOTED TO HAVE INTERMITTENT EXPIRATORY WHEEZES SCATTERED THROUGHOUT OTHERWISE HAVE BEEN CLEAR MOST OF THIS SHIFT. SBP HAS MAINTAINED GREATER THAN 100 THIS SHIFT WITH MAP GREATER THAN 65, PULSES REMAIN FULL X 4 EXTREMITIES, EDEMA IMPROVING. PT CONTINUES TO HAVE LARGE AMOUNT OF URINARY OUTPUT, GREATER THAN 3 LITERS THIS SHIFT.
--- NOTE | 2019-02-02 07:40 | NUR ---
ASSUMPTION OF CARE PT IS SLEEPING BUT AROUSABLE. PT IS AFEBRILE, VSS WITH A MAP OF 71. PT STS PAIN IS MINIMAL AT 2/10. NS INFUSING TO CENTRAL LINE. PT HAS NO COMPLAINTS AT THIS TIME. WILL DISCUSS WITH PROVIDER REGARDING POSSIBLE STATUS CHANGE AND CENTRAL LINE DC.
[2019-02-02 12:15] LABS: Vancomycin, Trough 7.1 ug/mL (5.0-10.0)
--- NOTE | 2019-02-02 17:42 | NUR ---
PT DID WELL, RESTED MUCH OF THIS SHIFT, UP TO EAT MEALS AND FOR BEDBATH IN BEDSIDE CHAIR. CENTRAL LINE DC'D TODAY WITHOUT COMPLICATIONS. PT WAS ABLE TO TRANSITION TO PO NORCO FOR PAIN MANAGEMENT. MAINTENANCE FLUIDS DC'D PT HAS ADEQUATE PO INTAKE.
--- NOTE | 2019-02-02 20:19 | NUR ---
ASSUMED CARE OF PT AT 1915. REPORT RECEIVED. PT PRESENTS IN BED. ALERT AND ORIENTED. PLEASANT AND COOPERATIVE WITH CARE AND ASSESSMENT. REPORT GIVEN TO KARIN DALEY. PT TRANSFERRED IN STABLE CONDITION TO PCU 06. THIS DONE AT 2004.
--- NOTE | 2019-02-02 20:30 | NUR ---
CARE ASSUMPTION / PCU ARRIVAL PT BROUGHT TO PCU RM 06 BY WHEELCHAIR FROM ICU @ APPROX 2009. PT A&O X4. PT C/O PAIN IN L HAND, BACK, BILAT LEGS, AND JOINTS. PT RECENTLY MEDICATED IN ICU PRIOR TO TRANSFER. PT REPORTS PAIN DECREASE TO 2/10 UPON ARRIVAL TO PCU POST MEDICATION TX. MONITOR SHOWS NSR, HR 70'S. VSS. PT PLEASANT & COOPERATIVE. WILL CONTINUE TO MONITOR AND PROVIDE CARE UNTIL REPORT OFF TO DAY SHIFT RN.
[2019-02-03 03:38] LABS: Hematocrit 32.3 % (37.0-53.0); Hemoglobin 11.2 g/dL (13.5-17.5); Mean Corpuscular HGB 29.7 pg (26.0-34.0); Mean Corpuscular HGB Conc 34.7 g/dL (31.5-36.5); Mean Corpuscular Volume 86 fL (80-100); Mean Platelet Volume 11.8 fL (9.1-12.4); Platelet Count 83 K/mm3 (150-400); RDW Coefficient Variation 13.5 % (11.7-14.2); RDW Standard Deviation 42.5 fL (35.1-46.3); Red Blood Cell Count 3.77 M/mm3 (4.30-5.90); White Blood Cell Count 3.96 K/mm3 (4.00-11.30)
[2019-02-03 03:55] LABS: Alanine Aminotransfer (ALT/SGP 79 U/L (12-78); Albumin, Blood 2.4 g/dL (3.4-5.0); Albumin/Globulin Ratio 0.8 (0.8-1.8); Alk Phos 92 U/L (50-136); Anion Gap 7 mmol/L (6-16); Aspartate Aminotrans (AST/SGOT 33 U/L (12-37); Bilirubin, Total 0.8 mg/dL (0.1-1.0); Blood Urea Nitrogen 7 mg/dL (8-24); Bun/Creatinine Ratio 7.6 (12.0-20.0); CO2, Blood 23 mmol/L (21-32); Chloride, Blood 108 mmol/L (98-108); Creatinine, Blood 0.92 mg/dL (0.60-1.20); Glomerular Filtration Rate >60 (60-); Glucose, Blood 104 mg/dL (70-99); Magnesium, Blood 1.8 mg/dL (1.6-2.4); Potassium, Blood 3.5 mmol/L (3.5-5.5); Sodium, Blood 138 mmol/L (136-145); Total Protein, Blood 5.4 g/dL (6.4-8.2)
[2019-02-03 03:57] LABS: BAND PERCENT MAN 5 % (0-8); BASOPHILS PERCENT MAN 0 % (0-2); EOSINOPHILS ABSOLUTE MAN 0.47 K/mm3 (0.00-0.68); EOSINOPHILS PERCENT MAN 12 % (0-6); LYMPHOCYTES ABSOLUTE MAN 1.14 K/mm3 (0.84-5.20); LYMPHOCYTES PERCENT MAN 29 % (21-46); MONOCYTES ABSOLUTE MAN 0.31 K/mm3 (0.16-1.47); MONOCYTES PERCENT MAN 8 % (4-13); NEUTROPHILS ABSOLUTE MAN 2.01 K/mm3 (1.96-9.15); SEG NEUTROPHILS PERCENT MAN 46 % (41-73); TOTAL CELLS COUNTED 100
--- NOTE | 2019-02-03 04:54 | NUR ---
SHIFT SUMMARY PT A&O X4. VSS. PT C/O PAIN IN "L HAND, BILAT LEGS, BACK, AND JOINTS". PT'S PAIN BEING MANAGED PER EMAR/PT REQUEST. NO EVENTS/CHANGES OVER NIGHT. WILL CONTINUE TO MONITOR AND PROVIDE CARE UNTIL REPORT OFF TO DAY SHIFT RN.
--- NOTE | 2019-02-03 08:52 | NUR ---
AM NOTE. ASSUMED CARE OF PT APROX 0700, PT IS A&Ox4 AND SBA IN THE ROOM. PT WAS ADMITTED FOR GASTROENTERITIS AND SEPSIS. PT'S VS HAVE BEEN STABLE, PT DENIES ANY CHEST PAIN/PRESSURE, N/V/D. TRACE EDEMA NOTED TO THE PT'S HAND BILAT. PT HAS BEEN SINUS SANDRA TO NSR IN THE 50'S-70'S. L/S CLEAR T/O ON RA WITH O2 SATS >90%. BT PRESENT AND NORMOACTIVE, ABD IS SOFT AND NONTENDER TO PALP. CALL LIGHT IN REACH, BED IS LOCKED AND LOW WILL CONTINUE TO MONITOR.
[2019-02-03 10:20] LABS: Vancomycin, Trough 17.4 ug/mL (5.0-10.0)
--- NOTE | 2019-02-03 18:40 | NUR ---
SHIFT SUMMARY. NO ACUTE CHANGES NOTED THIS SHIFT. PT'S VS STABLE. PT DENIES CHEST PAIN/PRESSURE, N/V/D OR SOB. PT HAS SLEPT MOST OF THE SHIFT. CALL LIGHT IN REACH, BED IS LOCKED AND LOW WILL CONTINUE TO MONITOR UNTIL REPORT IS GIVEN TO ONCOMING RN.
--- NOTE | 2019-02-04 02:51 | NUR ---
ASSUMED CARE APPROXIATELY 1905 FROM KARIN ALTMAN; PT IS PLEASANT AND COOPERATIVE W/ CARE; PT IS ON RA; PT USES URINAL AT BEDSIDE INDEPENDENTLY; PT SLEPT ON AND OFF THROUGH NIGHT; CALL LIGHT W/IN REACH; BED IN LOWEST POSITION; BATHROOM LIGHT LEFT ON; WILL CONTINUE TO MONITOR AND ASSESS UNTIL HANDOFF TO DAY SHIFT RN.
[2019-02-04 04:11] LABS: BASOPHILS ABSOLUTE AUTO 0.01 K/mm3 (0.00-0.23); BASOPHILS PERCENT AUTO 0 % (0-2); EOSINOPHILS ABSOLUTE AUTO 0.28 K/mm3 (0.00-0.68); EOSINOPHILS PERCENT AUTO 9 % (0-6); Hematocrit 32.9 % (37.0-53.0); Hemoglobin 11.6 g/dL (13.5-17.5); IMMATURE GRAN ABSOLUTE AUTO 0.01 K/mm3 (0.00-0.10); IMMATURE GRAN PERCENT AUTO 0 % (0-1); LYMPHOCYTES ABSOLUTE AUTO 1.39 K/mm3 (0.84-5.20); LYMPHOCYTES PERCENT AUTO 45 % (21-46); MONOCYTES ABSOLUTE AUTO 0.25 K/mm3 (0.16-1.47); MONOCYTES PERCENT AUTO 8 % (4-13); Mean Corpuscular HGB Conc 35.3 g/dL (31.5-36.5); Mean Corpuscular Volume 85 fL (80-100); Mean Platelet Volume 11.8 fL (9.1-12.4); NEUTROPHILS ABSOLUTE AUTO 1.18 K/mm3 (1.96-9.15); NEUTROPHILS PERCENT AUTO 38 % (41-73); NRBC ABSOLUTE 0.02 K/mm3 (0.00-0.02); NRBC Auto 0.6 /100 WBC (0.0-0.2); Platelet Count 92 K/mm3 (150-400); RDW Coefficient Variation 13.4 % (11.7-14.2); RDW Standard Deviation 42.3 fL (35.1-46.3); Red Blood Cell Count 3.87 M/mm3 (4.30-5.90); White Blood Cell Count 3.12 K/mm3 (4.00-11.30)
[2019-02-04 04:24] LABS: Anion Gap 6 mmol/L (6-16); Blood Urea Nitrogen 6 mg/dL (8-24); Bun/Creatinine Ratio 6.4 (12.0-20.0); CO2, Blood 26 mmol/L (21-32); Calcium, Blood 8.3 mg/dL (8.5-10.1); Chloride, Blood 107 mmol/L (98-108); Creatinine, Blood 0.94 mg/dL (0.60-1.20); Glomerular Filtration Rate >60 (60-); Glucose, Blood 115 mg/dL (70-99); Potassium, Blood 3.7 mmol/L (3.5-5.5); Sodium, Blood 139 mmol/L (136-145)
--- NOTE | 2019-02-04 08:58 | NUR ---
AM NOTE. ASSUMED CARE OF PT APROX 0700. PT IS A&Ox4 AND IND IN THE ROOM. PT DENIES CHEST PAIN/PRESSURE, N/V/D OR ABD PAIN. PT'S VS STABLE, PT IS IN NSR IN THE 50'S-60'S. PT IS REQUESTING TO D/C HOME TODAY. CALL LIGHT IN REACH, BED IS LOCKED AND LOW WILL CONTINUE TO MONITOR.
[2019-02-04] MEDS ORDERED: Tylenol325 MG PO (12:42)
[2019-02-04] MEDS ORDERED: Culturelle1 CAP PO (12:43)
[2019-02-04] MEDS ORDERED: NICO21TP TOP (12:44)
[2019-02-04] MEDS ORDERED: OMEPRAZOLE20 MG PO (12:44)
[2019-02-04] MEDS ORDERED: ONDA4ODT PO (12:46)
[2019-02-04] MEDS ORDERED: AMOCLA875 PO (12:47)
--- NOTE | 2019-02-04 15:16 | NUR ---
PT D/C. PT WAS D/C'D HOME VIA TAXI. PT'S BELONGINGS WERE PACKED BY PT, PT STATES ALL HIS BELONGINGS ARE PRESENT. EDUCATION AND DISCHARGE INSTRUCTIONS WERE PROVIDED TO PT AND STATED HIS UNDERSTANDING OF MEDICATIONS, APPOINTMENTS AND FOLLOW UP INFO. PT'S IV'S WERE REMOVED WNL.
== END 2019-02-04 15:52 | disposition home or self-care (01) | DRG 871 ==
LOC: ER 21:23 → ICUW 21:24 → PCU 01-31 09:17 → ICUW 02-02 10:51 → PCU 02-02 20:30
PROVIDERS: Emergency Medicine; Family Medicine; Internal Medicine Pulmonary Disease; Pharmacist; Physician Assistant; ADMIT Internal Medicine
PROC: 02HV33Z Insertion of Infusion Device into Superior Vena Cava, Percutaneous Approach (ICD-10-PCS; principal; 2019-01-31)
DX: A41.9 Sepsis, unspecified organism (principal); I21.3 ST elevation (STEMI) myocardial infarction of unspecified site; R65.21 Severe sepsis with septic shock; E87.2 Acidosis; F15.10 Other stimulant abuse, uncomplicated; J43.9 Emphysema, unspecified; K52.9 Noninfective gastroenteritis and colitis, unspecified; Z95.5 Presence of coronary angioplasty implant and graft; I25.10 Atherosclerotic heart disease of native coronary artery without angina pectoris; E05.90 Thyrotoxicosis, unspecified without thyrotoxic crisis or storm
CPT/HCPCS: 0097U; 36415; 36556; 71045; 71260; 80048; 80053; 80202; 81001; 82550; 82553; 82803; 83605; 83690; 83735; 83880; 84100; 84484; 85025; 85027; 85610; 87040; 87086; 93005; 93010; 93308; 93321; 96365; 96375; 99285-25; A9270; A9270-GY; C1751; J0610; J1250; J1650; J2405; J2543; J3010; J3370; J3475; J7030; J7040; J7060; J7120; Q9967

== ENCOUNTER 2019-02-09 10:43 | Inpatient (IN) | payer MEDICARE, OTHER ==
[~2019-02-09] VITALS: Ht 177.8 cm; Wt 63.3 kg
[~2019-02-09 10:43] MED LIST changes: +AMOCLA875 PO; +Culturelle1 CAP PO; +NICO21TP TOP; +OMEPRAZOLE20 MG PO; +ONDA4ODT PO; +Tylenol325 MG PO
[2019-02-09 11:24] LABS: PCO2 Arterial 32.2 mmHg (35-45); PO2 Arterial 65.6 mmHg (80-100); pH Blood Arterial 7.43 (7.35-7.45)
[2019-02-09 11:51] LABS: BASOPHILS ABSOLUTE AUTO 0.01 K/mm3 (0.00-0.23); BASOPHILS PERCENT AUTO 0 % (0-2); EOSINOPHILS ABSOLUTE AUTO 0.02 K/mm3 (0.00-0.68); EOSINOPHILS PERCENT AUTO 0 % (0-6); Hematocrit 38.2 % (37.0-53.0); Hemoglobin 12.7 g/dL (13.5-17.5); IMMATURE GRAN ABSOLUTE AUTO 0.02 K/mm3 (0.00-0.10); IMMATURE GRAN PERCENT AUTO 0 % (0-1); LYMPHOCYTES ABSOLUTE AUTO 3.72 K/mm3 (0.84-5.20); LYMPHOCYTES PERCENT AUTO 82 % (21-46); MONOCYTES ABSOLUTE AUTO 0.08 K/mm3 (0.16-1.47); MONOCYTES PERCENT AUTO 2 % (4-13); Mean Corpuscular HGB 29.2 pg (26.0-34.0); Mean Corpuscular HGB Conc 33.2 g/dL (31.5-36.5); Mean Platelet Volume 9.6 fL (9.1-12.4); NEUTROPHILS ABSOLUTE AUTO 0.69 K/mm3 (1.96-9.15); NEUTROPHILS PERCENT AUTO 15 % (41-73); Platelet Count 372 K/mm3 (150-400); RDW Coefficient Variation 14.6 % (11.7-14.2); RDW Standard Deviation 47.5 fL (35.1-46.3); Red Blood Cell Count 4.35 M/mm3 (4.30-5.90); White Blood Cell Count 4.54 K/mm3 (4.00-11.30)
[2019-02-09 11:54] LABS: Mean Corpuscular Volume 88 fL (80-100)
[2019-02-09 12:01] LABS: Alanine Aminotransfer (ALT/SGP 101 U/L (12-78); Albumin, Blood 3.4 g/dL (3.4-5.0); Albumin/Globulin Ratio 0.9 (0.8-1.8); Alk Phos 112 U/L (50-136); Anion Gap 7 mmol/L (6-16); Aspartate Aminotrans (AST/SGOT 45 U/L (12-37); Bilirubin, Total 0.5 mg/dL (0.1-1.0); Blood Urea Nitrogen 14 mg/dL (8-24); Bun/Creatinine Ratio 17.9 (12.0-20.0); CO2, Blood 24 mmol/L (21-32); Calcium, Blood 8.7 mg/dL (8.5-10.1); Chloride, Blood 108 mmol/L (98-108); Creatinine, Blood 0.78 mg/dL (0.60-1.20); Globulin, Blood 3.6 g/dL (2.2-4.0); Glomerular Filtration Rate >60 (60-); Glucose, Blood 123 mg/dL (70-99); Potassium, Blood 3.9 mmol/L (3.5-5.5); Sodium, Blood 139 mmol/L (136-145); Troponin I <0.015 ng/mL (0.000-0.040)
[2019-02-09 12:22] LABS: International Normalized Ratio 0.98; Prothrombin Time Results 10.4 Sec (9.7-11.5)
[2019-02-09 14:06] LABS: Source, Urine Clean Catch
[2019-02-09 14:33] LABS: Bilirubin, Urine Neg (Neg); Blood, Urine Neg (Neg); Glucose Qualitative, Urine Neg (Neg); Ketones, Urine Neg (Neg); Leukocyte Esterase, Urine Neg (Neg); Nitrite, Urine Neg (Neg); Protein, Urine Neg (Neg); Urobilinogen, Urine NORM (Normal)
[2019-02-09 14:42] LABS: Appearance, Urine Clear (Clear); Color, Urine Yellow (P-Yellow)
[2019-02-09 14:49] LABS: U Amphetamine Screen Not Detected; U Barbituate Screen Not Detected; U Benzodiazapine Screen Not Detected; U Buprenorphine Screen Not Detected; U Cannabinoids Screen DETECTED; U Cocaine Screen Not Detected; U Methadone Screen Not Detected; U Methamphetamine Screen Not Detected; U Opiates Screen DETECTED; U Oxycodone Screen Not Detected; U Phencyclidine Screen Not Detected; U Propoxyphene Screen Not Detected
[2019-02-09] MEDS ORDERED: Clonazepam0.5 MG PO (18:47)
[2019-02-09] MEDS ORDERED: Vistaril50 MG PO (18:47)
[2019-02-09 19:46] LABS: BASOPHILS ABSOLUTE AUTO 0.02 K/mm3 (0.00-0.23); BASOPHILS PERCENT AUTO 0 % (0-2); EOSINOPHILS ABSOLUTE AUTO 0.04 K/mm3 (0.00-0.68); EOSINOPHILS PERCENT AUTO 0 % (0-6); Hematocrit 31.9 % (37.0-53.0); Hemoglobin 10.8 g/dL (13.5-17.5); IMMATURE GRAN ABSOLUTE AUTO 0.12 K/mm3 (0.00-0.10); IMMATURE GRAN PERCENT AUTO 1 % (0-1); LYMPHOCYTES PERCENT AUTO 1 % (21-46); MONOCYTES PERCENT AUTO 2 % (4-13); Mean Corpuscular HGB 30.8 pg (26.0-34.0); Mean Corpuscular HGB Conc 33.9 g/dL (31.5-36.5); Mean Platelet Volume 9.7 fL (9.1-12.4); NEUTROPHILS ABSOLUTE AUTO 17.72 K/mm3 (1.96-9.15); NEUTROPHILS PERCENT AUTO 96 % (41-73); Platelet Count 299 K/mm3 (150-400); RDW Coefficient Variation 14.9 % (11.7-14.2); RDW Standard Deviation 49.1 fL (35.1-46.3); Red Blood Cell Count 3.51 M/mm3 (4.30-5.90)
[2019-02-09 19:47] LABS: Mean Corpuscular Volume 91 fL (80-100)
[2019-02-09 20:08] LABS: Alanine Aminotransfer (ALT/SGP 128 U/L (12-78); Albumin, Blood 2.7 g/dL (3.4-5.0); Alk Phos 78 U/L (50-136); Anion Gap 6 mmol/L (6-16); Aspartate Aminotrans (AST/SGOT 86 U/L (12-37); Bilirubin, Total 0.9 mg/dL (0.1-1.0); Blood Urea Nitrogen 20 mg/dL (8-24); Bun/Creatinine Ratio 19.4 (12.0-20.0); CO2, Blood 21 mmol/L (21-32); CPK Creatine Kinase 113 U/L (39-308); Calcium, Blood 7.8 mg/dL (8.5-10.1); Chloride, Blood 105 mmol/L (98-108); Creatinine, Blood 1.03 mg/dL (0.60-1.20); Globulin, Blood 2.8 g/dL (2.2-4.0); Glomerular Filtration Rate >60 (60-); Glucose, Blood 111 mg/dL (70-99); Sodium, Blood 132 mmol/L (136-145); Total Protein, Blood 5.5 g/dL (6.4-8.2); Troponin I 0.031 ng/mL (0.000-0.040)
[2019-02-09 20:10] LABS: Creatine Kinase MB 1.4 ng/mL (0.0-3.6); Creatine Kinase MB Index 1.2 (0.0-4.0); Thyroid Stimulating Hormone 0.939 uIU/mL (0.360-4.800); Triiodothyronine, Free 0.62 pg/mL (2.18-3.98)
--- NOTE | 2019-02-09 20:30 | NUR ---
ADMIT NOTE ADMIT 49 YEAR OLD MALE TO ICU 14 TO HOSPITALIST SERVICES, PER JENN VIA ER. TRANSFER TO BED USING SLIDER SHEET. MONITOR PLACED SHOWING SINUS RHYTHM HEART RATE 80'S. LUNG SOUND CLEAR RESPIRATIONS TACHY. SPO2 97% ON ROOM AIR. MOANING AND REQUESTING BLANKET AND SOME THING TO DRINK. EXPLAINED TEMP WAS 101.4 SO WOULD NOT BE ABLE TO GIVE HIM A BLANKET HOWEVER ICE WATER OBTALINED REQUEST PAIN MED. INFORMED RN WOULD NOTIFY . ABDOMEN SOFT WITH BOWEL SOUNDS FOUR QUADS. SKIN HOT INTACT L FOREARM WRAPPED WITH NISHA BANDAGE. STATES " I BROKE MY HAND A COUPLE OF WEEKS AGO". AVILA IN BED REPOSTIONS SELF. NO EDEMA PEDAL PULSES PRESET. NS BOLUS INITATED. REFUSES COLACE CONTINUE TO MONITOR AND REPORT CHANGE IN PATIENT CONDITION. BLOOD CONSENT AND RELEASE OF INFORMATION COMPLETED
--- NOTE | 2019-02-09 23:32 | NUR ---
PT HAD LG AMOUNT PROJECTILE SUDDEN EMESIS BROWN PARTIAL DIGESTED FOOD LINEN CHANGED
--- NOTE | 2019-02-10 01:06 | NUR ---
PUBLICATIONS MANAGER AT BEDSIDE ORDERS NOTED
--- NOTE | 2019-02-10 01:30 | NUR ---
DR SON NOTIFIED OF COMPLETION OF SALINE BOLUS ORDERS NOTED
--- NOTE | 2019-02-10 02:13 | NUR ---
PHOTO OBTAINED OF L HAND SEE PICTURES IN CHART
[2019-02-10 03:25] LABS: BASOPHILS ABSOLUTE AUTO 0.03 K/mm3 (0.00-0.23); BASOPHILS PERCENT AUTO 0 % (0-2); EOSINOPHILS ABSOLUTE AUTO 0.09 K/mm3 (0.00-0.68); EOSINOPHILS PERCENT AUTO 1 % (0-6); Hematocrit 28.7 % (37.0-53.0); Hemoglobin 9.6 g/dL (13.5-17.5); IMMATURE GRAN ABSOLUTE AUTO 0.28 K/mm3 (0.00-0.10); IMMATURE GRAN PERCENT AUTO 2 % (0-1); LYMPHOCYTES PERCENT AUTO 2 % (21-46); MONOCYTES ABSOLUTE AUTO 0.61 K/mm3 (0.16-1.47); MONOCYTES PERCENT AUTO 3 % (4-13); Mean Corpuscular HGB 29.6 pg (26.0-34.0); Mean Corpuscular HGB Conc 33.4 g/dL (31.5-36.5); Mean Corpuscular Volume 89 fL (80-100); Mean Platelet Volume 9.4 fL (9.1-12.4); NEUTROPHILS ABSOLUTE AUTO 17.58 K/mm3 (1.96-9.15); NEUTROPHILS PERCENT AUTO 93 % (41-73); Platelet Count 250 K/mm3 (150-400); RDW Coefficient Variation 14.7 % (11.7-14.2); RDW Standard Deviation 47.4 fL (35.1-46.3); Red Blood Cell Count 3.24 M/mm3 (4.30-5.90); White Blood Cell Count 18.89 K/mm3 (4.00-11.30)
[2019-02-10 03:48] LABS: Creatine Kinase MB 2.9 ng/mL (0.0-3.6); Creatine Kinase MB Index 1.4 (0.0-4.0); Troponin I 0.046 ng/mL (0.000-0.040)
[2019-02-10 03:49] LABS: Alanine Aminotransfer (ALT/SGP 136 U/L (12-78); Albumin, Blood 2.3 g/dL (3.4-5.0); Albumin/Globulin Ratio 0.9 (0.8-1.8); Alk Phos 65 U/L (50-136); Anion Gap 10 mmol/L (6-16); Aspartate Aminotrans (AST/SGOT 103 U/L (12-37); Bilirubin, Total 0.9 mg/dL (0.1-1.0); Blood Urea Nitrogen 24 mg/dL (8-24); Bun/Creatinine Ratio 27.1 (12.0-20.0); CO2, Blood 18 mmol/L (21-32); Calcium, Blood 6.8 mg/dL (8.5-10.1); Chloride, Blood 110 mmol/L (98-108); Creatinine, Blood 0.88 mg/dL (0.60-1.20); Globulin, Blood 2.6 g/dL (2.2-4.0); Glomerular Filtration Rate >60 (60-); Glucose, Blood 112 mg/dL (70-99); Sodium, Blood 138 mmol/L (136-145); Total Protein, Blood 4.9 g/dL (6.4-8.2)
--- NOTE | 2019-02-10 05:42 | NUR ---
SHIFT SUMMARY; MONITOR INTACT SHOWING SINUS RHYTHM. HEART RATE 70'S-80'S. MOANS WHEN AWAKE. LUNG SOUNDS CLEAR UPPERS OCC WHEEZE. SPO2 95-98% ON ROOM AIR. ABDOMEN SOFT WITH BOWEL SOUNDS FOUR QUADS. VOIDS QUINTON URINE PER URINAL . REPOSITIONS SELF IN BED. HAS HAD TWO EPISODES OF EMESIS THIS SHIFT.; MEDICATED WITH FENTANYL TWICE THIS SHIFT. CAST WITH NISHA WRAP TO L FOREARM INTACT PICTURES OBTAINED. LEVOPHED FOR BLOOD PRESSURE SUPPORT. CONTINUE TO MONITOR AND REPORT CHANGE IN PATIEN CONDITION. STATES HURTS "ALL OVER , ALL THE TIME AND THE ONLY THING THAT HELPS IS METH"
--- NOTE | 2019-02-10 08:04 | NUR ---
Recieved report from Sue RN. He states 10/10 pain all over and medication that we are giving does not last5. He wants to talk with Dr. Called Dr Bajwa and Dr Barnes and they will be in to see him. He is RA and sats 96%. Abd. US is done and results in computer. He is able to reposition self in bed. He has 18ga LAC, dressing intact and site WNL and is infuseing Levophed at 8mcg/min with systolics 90-100's and HR continues 80's. He has 18ga RFA, dressing intact and site WNL's and is infusing NS at 150ml/hr. avionics test technician called for stat ECHO.
--- NOTE | 2019-02-10 09:49 | NUR ---
Dr Barnes and Aydee have seen patient and new orders. medicated and is currently resting. Left AC IV went bad and new one started.. Levophed remains unchanged for systolic in the 90-100's. ECHO done. He tolerated PO med without any nausea.
--- NOTE | 2019-02-10 09:53 | NUR ---
Echocardiogram completed.
--- NOTE | 2019-02-10 11:46 | NUR ---
Patient states pain better after last fentanyl. He is sitting up in bed eating lunch. Levophed just reduced to 4mcg/min and systolic 90's. Just generally looks more relieved and relaxed.
--- NOTE | 2019-02-10 13:32 | NUR ---
Patient resting and states feels a little better. He denies nausea. Critical value 6.[address] Barnes notified in ICU. Just placed Levophed on standby. Remains on RA.
[2019-02-10 16:02] LABS: BASOPHILS ABSOLUTE AUTO 0.02 K/mm3 (0.00-0.23); BASOPHILS PERCENT AUTO 0 % (0-2); EOSINOPHILS PERCENT AUTO 0 % (0-6); Hematocrit 26.8 % (37.0-53.0); Hemoglobin 8.9 g/dL (13.5-17.5); IMMATURE GRAN ABSOLUTE AUTO 0.08 K/mm3 (0.00-0.10); IMMATURE GRAN PERCENT AUTO 1 % (0-1); LYMPHOCYTES PERCENT AUTO 6 % (21-46); MONOCYTES ABSOLUTE AUTO 0.25 K/mm3 (0.16-1.47); MONOCYTES PERCENT AUTO 2 % (4-13); Mean Corpuscular HGB 29.2 pg (26.0-34.0); Mean Corpuscular HGB Conc 33.2 g/dL (31.5-36.5); Mean Corpuscular Volume 88 fL (80-100); Mean Platelet Volume 9.8 fL (9.1-12.4); NEUTROPHILS ABSOLUTE AUTO 11.15 K/mm3 (1.96-9.15); NEUTROPHILS PERCENT AUTO 91 % (41-73); Platelet Count 226 K/mm3 (150-400); RDW Coefficient Variation 14.8 % (11.7-14.2); RDW Standard Deviation 47.8 fL (35.1-46.3); Red Blood Cell Count 3.05 M/mm3 (4.30-5.90)
[2019-02-10 16:26] LABS: Anion Gap 10 mmol/L (6-16); Blood Urea Nitrogen 20 mg/dL (8-24); Bun/Creatinine Ratio 24.2 (12.0-20.0); CO2, Blood 16 mmol/L (21-32); Calcium, Blood 7.7 mg/dL (8.5-10.1); Chloride, Blood 112 mmol/L (98-108); Creatinine, Blood 0.83 mg/dL (0.60-1.20); Glomerular Filtration Rate >60 (60-); Glucose, Blood 142 mg/dL (70-99); Magnesium, Blood 1.8 mg/dL (1.6-2.4); Phosphorus, Blood 1.8 mg/dL (2.5-4.9); Potassium, Blood 3.8 mmol/L (3.5-5.5); Sodium, Blood 138 mmol/L (136-145)
--- NOTE | 2019-02-10 16:41 | NUR ---
PATIENT REMAINS OFF LEVOPHED AND SYSTOLIC 90'S WITH MAP LOW 60'S. HE IS UP WITH ASSIST TO BATHROOM FOR SECOND TIME WITH SMALL BROWN SOFT STOOL. URINE OUT PUT HIGH. HE REMAINS ON RA AND SATS IN THE MID TO HIGH 90%.
--- NOTE | 2019-02-10 17:53 | NUR ---
Patient up to shower by wheelchair. He tolerated well. He is sitting up in bed starting dinner he requested. His sats on Ra 98% and with current fluids running he has systolic 117 with MAP 87. His ex girlfriend in room. He states pain managed better currently..
--- NOTE | 2019-02-10 20:08 | NUR ---
CARE ASSUMED REPORT RECEIVED, CARE ASSUMED AT 1900 FROM KARIN BRADLEY. BEDSIDE ROUNDING COMPLEE. PT CALM, COOPERATIVE. REPORTS PAIN 3/10 AT THIS TIME BUT DECLINES FURTHER INTERVENTION. VITALS STABLE. SEE SHIFT ASSESSMENT. PT AGREES TO CALL FOR NEEDS.
[2019-02-11 03:07] LABS: HIV SCREEN 4TH GENERATION WRFX Non Reactive (Non Reactive)
[2019-02-11 03:16] LABS: BASOPHILS PERCENT AUTO 0 % (0-2); EOSINOPHILS PERCENT AUTO 0 % (0-6); Hematocrit 23.4 % (37.0-53.0); Hemoglobin 7.9 g/dL (13.5-17.5); IMMATURE GRAN ABSOLUTE AUTO 0.04 K/mm3 (0.00-0.10); IMMATURE GRAN PERCENT AUTO 0 % (0-1); LYMPHOCYTES ABSOLUTE AUTO 1.21 K/mm3 (0.84-5.20); LYMPHOCYTES PERCENT AUTO 12 % (21-46); MONOCYTES ABSOLUTE AUTO 0.71 K/mm3 (0.16-1.47); MONOCYTES PERCENT AUTO 7 % (4-13); Mean Corpuscular HGB 29.3 pg (26.0-34.0); Mean Corpuscular HGB Conc 33.8 g/dL (31.5-36.5); Mean Corpuscular Volume 87 fL (80-100); Mean Platelet Volume 9.9 fL (9.1-12.4); NEUTROPHILS ABSOLUTE AUTO 8.05 K/mm3 (1.96-9.15); NEUTROPHILS PERCENT AUTO 80 % (41-73); Platelet Count 200 K/mm3 (150-400); RDW Coefficient Variation 15.3 % (11.7-14.2); RDW Standard Deviation 48.2 fL (35.1-46.3); White Blood Cell Count 10.01 K/mm3 (4.00-11.30)
[2019-02-11 03:33] LABS: Anion Gap 6 mmol/L (6-16); Blood Urea Nitrogen 15 mg/dL (8-24); Bun/Creatinine Ratio 18.5 (12.0-20.0); CO2, Blood 21 mmol/L (21-32); Calcium, Blood 7.5 mg/dL (8.5-10.1); Chloride, Blood 114 mmol/L (98-108); Creatinine, Blood 0.81 mg/dL (0.60-1.20); Glomerular Filtration Rate >60 (60-); Glucose, Blood 112 mg/dL (70-99); Magnesium, Blood 2.2 mg/dL (1.6-2.4); Phosphorus, Blood 2.5 mg/dL (2.5-4.9); Potassium, Blood 4.2 mmol/L (3.5-5.5); Sodium, Blood 141 mmol/L (136-145)
--- NOTE | 2019-02-11 05:42 | NUR ---
SUMMARY VITALS STABLE THROUGHOUT SHIFT. GENERALIZED PAIN MANAGED WITH FENTANYL, SEE EMAR. PT HAS BEEN UP AND DOWN TO BATHROOM FREQUENTLY WITH HIGH URINE OUTPUT, SEE I/O FLOWSHEET. PT HAS DENIED CHEST PAIN, BUT DOES BECOME SHORT OF BREATH WITH EXERTION. PT HAS CALLED APPROPRIATELY FOR NEEDS.
[2019-02-11 06:09] LABS: COMPLEMENT C3, SERUM 84 mg/dL (82-167); COMPLEMENT C4, SERUM 21 mg/dL (14-44)
[2019-02-11 08:24] LABS: Vancomycin, Trough 15.1 ug/mL (5.0-10.0)
--- NOTE | 2019-02-11 10:15 | NUR ---
PT IS REOPORTED TO HAVE PAIN AND WHEN QUESTIONED PT ONLY ABLE TO STATE "EVERYWHERE". MEDS GIVEN WITH RELIEF. VS NOTED AND STABLE CURRENTLY. NO N/V. VOIDING WELL. NS AT 150 ML AND ABX INFUSING. PT ON RA AND NO RESP DISTRESS.
[2019-02-11 14:00] LABS: Stool Occult Blood Guaiac 1 Neg (Neg)
[2019-02-11 14:07] LABS: ANTI-DSDNA ANTIBODIES <1 IU/mL (0-9); RNP ANTIBODIES <0.2 AI (0.0-0.9); SJOGREN'S ANTI-SS-A <0.2 AI (0.0-0.9); SJOGREN'S ANTI-SS-B <0.2 AI (0.0-0.9); SMITH ANTIBODIES <0.2 AI (0.0-0.9)
--- NOTE | 2019-02-11 16:37 | NUR ---
PT WAS JUST AGAIN C/O PAIN "EVERYWHERE" AT 10/02 PRIOR. PT TMAX 99.7. PT HAS BEEN GENERALLY QUIET IN ROOM THIS SHIFT. PT I/O NOTED, PT HAS BEEN TAKING PO THIS SHIFT WELL.
--- NOTE | 2019-02-12 05:49 | NUR ---
SUMMARY REPORT RECEIVED, CARE ASSUMED FROM KARIN ZHAO AT 1900. NO ACUTE CHANGES THROUGHOUT NIGHT. VITALS STABLE. ASSESSMENTS UNCHANGED. PT CONTINUES TO HAVE HIGH URINE OUTPUT, SEE I/O FLOWSHEET. MEDICATED FOR GENERALIZED PAIN THROUGHOUT NIGHT, SEE EMAR. PT HAS CALLED APPRORPIATELY FOR NEEDS.
--- NOTE | 2019-02-12 07:38 | NUR ---
ASSUMED CARE: PT RESTING QUIETLY AT THIS TIME. NO NEEDS OR CONCERNS NOTED
[2019-02-12 08:12] LABS: BASOPHILS PERCENT AUTO 0 % (0-2); EOSINOPHILS ABSOLUTE AUTO 0.18 K/mm3 (0.00-0.68); EOSINOPHILS PERCENT AUTO 5 % (0-6); Hemoglobin 10.8 g/dL (13.5-17.5); IMMATURE GRAN ABSOLUTE AUTO 0.01 K/mm3 (0.00-0.10); IMMATURE GRAN PERCENT AUTO 0 % (0-1); LYMPHOCYTES PERCENT AUTO 40 % (21-46); MONOCYTES ABSOLUTE AUTO 0.36 K/mm3 (0.16-1.47); MONOCYTES PERCENT AUTO 10 % (4-13); Mean Corpuscular HGB 29.8 pg (26.0-34.0); Mean Corpuscular HGB Conc 34.8 g/dL (31.5-36.5); Mean Corpuscular Volume 85 fL (80-100); Mean Platelet Volume 9.8 fL (9.1-12.4); NEUTROPHILS ABSOLUTE AUTO 1.68 K/mm3 (1.96-9.15); NEUTROPHILS PERCENT AUTO 45 % (41-73); Platelet Count 238 K/mm3 (150-400); RDW Coefficient Variation 14.6 % (11.7-14.2); RDW Standard Deviation 45.8 fL (35.1-46.3); Red Blood Cell Count 3.63 M/mm3 (4.30-5.90); White Blood Cell Count 3.73 K/mm3 (4.00-11.30)
[2019-02-12 08:57] LABS: Alanine Aminotransfer (ALT/SGP 138 U/L (12-78); Albumin, Blood 2.7 g/dL (3.4-5.0); Albumin/Globulin Ratio 0.8 (0.8-1.8); Alk Phos 69 U/L (50-136); Anion Gap 5 mmol/L (6-16); Aspartate Aminotrans (AST/SGOT 40 U/L (12-37); Bilirubin, Direct 0.2 mg/dL (0.0-0.3); Bilirubin, Indirect 0.8 mg/dL (0.1-0.7); Blood Urea Nitrogen 10 mg/dL (8-24); Bun/Creatinine Ratio 11.4 (12.0-20.0); CO2, Blood 25 mmol/L (21-32); Calcium, Blood 8.2 mg/dL (8.5-10.1); Chloride, Blood 105 mmol/L (98-108); Creatinine, Blood 0.88 mg/dL (0.60-1.20); Globulin, Blood 3.3 g/dL (2.2-4.0); Glomerular Filtration Rate >60 (60-); Glucose, Blood 88 mg/dL (70-99); Phosphorus, Blood 2.4 mg/dL (2.5-4.9); Sodium, Blood 135 mmol/L (136-145)
[2019-02-12 15:07] LABS: ATYPICAL PANCA <1:20 titer (Neg:<1:20); CYTOPLASMIC (C-ANCA) <1:20 titer (Neg:<1:20); PERINUCLEAR (P-ANCA) <1:20 titer (Neg:<1:20)
--- NOTE | 2019-02-12 17:18 | NUR ---
SHIFT SUMMARY: PT MEDICAL STATUS. WORKED WITH PHYSICAL THERAPY TODAY. DR DONOVAN STATES SHE WILL SIGN OFF. FOLLOW UP APPOINTMENT ADVISED AND IN DISCHARGE INSTRUCTIONS. NO ACUTE NEEDS OR CONCERNS.
--- NOTE | 2019-02-13 06:30 | NUR ---
SUMMARY NO ACUTE CHANGES. VITALS STABLE THROUGOUT SHIFT. MEDICATED FOR PAIN PER EMAR. PT HAS CALLED APPROPRIATELY FOR NEEDS.
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
[2019-02-13 09:02] LABS: Vancomycin, Trough 16.5 ug/mL (5.0-10.0)
[2019-02-13] MEDS ORDERED: ALBU90OI INH (11:18)
--- NOTE | 2019-02-13 13:35 | NUR ---
DISCHARGE TO HOME: ATTEMPTS MADE FOR PT TO RECEIVE FREE TRANSPORT BUT PT DOES NOT QUALIFY. HE STS HAVING NO MONEY TO PAY FOR A CAB HOME, NIKIA Polk, RN RATE SETTER NOTIFIED OF THIS. [facility] ARREOLA HAS BEEN CONTACTED & WILL BE PROVIDED TO THE PT VIA [facility] PA[facility]MENT. D/C TEACHING HAS BEEN COMPLETED & PT VERBALIZES UNDERSTANDING OF THIS, DENIES FURTHER QUESTIONS. PIVs & ALL MONITORS REMOVED FROM PT. D/C PACKET & ALL BELONGINGS HAVE BEEN TAKEN OUT W/ PT. SCRIPTS FAXED TO [facility]. PT TAKEN OUT VIA WC BY THIS RN AT 1320, TAXI RECEIPT SIGNED BY THIS RN.
[2019-02-14] MEDS ORDERED: IBUP800 PO (16:31)
== END 2019-02-13 13:20 | disposition home or self-care (01) | DRG 871 ==
LOC: ER 10:43 → ICUW 18:25
PROVIDERS: Emergency Medicine; Internal Medicine Pulmonary Disease; Nurse Practitioner Acute Care; Pharmacist; ADMIT Internal Medicine
PROC: 3E033XZ Introduction of Vasopressor into Peripheral Vein, Percutaneous Approach (ICD-10-PCS; principal; 2019-02-10)
DX: R57.1 Hypovolemic shock (principal); I21.3 ST elevation (STEMI) myocardial infarction of unspecified site; J18.9 Pneumonia, unspecified organism; E87.2 Acidosis; I25.10 Atherosclerotic heart disease of native coronary artery without angina pectoris; Z95.5 Presence of coronary angioplasty implant and graft; Z79.02 Long term (current) use of antithrombotics/antiplatelets; Z79.82 Long term (current) use of aspirin; Z87.891 Personal history of nicotine dependence; J43.9 Emphysema, unspecified; I25.5 Ischemic cardiomyopathy
CPT/HCPCS: 36415; 36600; 71045; 71046; 71275; 74175; 76705; 80048; 80053; 80202; 80400; 81003; 82024; 82248; 82270; 82533; 82550; 82553; 82803; 83605; 83690; 83735; 83880; 84100; 84145; 84439; 84443; 84481; 84484; 85025; 85610; 85651; 86140; 86160; 86225; 86235; 86256; 87040; 87389; 93005; 93010; 93308; 94640; 96361; 96374; 96375; 97162; 97530; 99285-25; A9270; A9270-GY; G0480; J0834; J1650; J2270; J2310; J2405; J2543; J2930; J3010; J3370; J3475; J7030; J7060; Q9967

== ENCOUNTER 2019-02-14 13:42 | Emergency (ER) | payer MEDICARE, OTHER ==
[~2019-02-14] VITALS: Ht 180.3 cm; Wt 61.2 kg
[~2019-02-14 13:42] MED LIST changes: +ALBU90OI INH; +Clonazepam0.5 MG PO; +Vistaril50 MG PO
[2019-02-14 14:17] LABS: BASOPHILS ABSOLUTE AUTO 0.01 K/mm3 (0.00-0.23); BASOPHILS PERCENT AUTO 0 % (0-2); EOSINOPHILS ABSOLUTE AUTO 0.17 K/mm3 (0.00-0.68); EOSINOPHILS PERCENT AUTO 5 % (0-6); Hematocrit 38.2 % (37.0-53.0); Hemoglobin 12.8 g/dL (13.5-17.5); IMMATURE GRAN PERCENT AUTO 0 % (0-1); LYMPHOCYTES ABSOLUTE AUTO 2.08 K/mm3 (0.84-5.20); LYMPHOCYTES PERCENT AUTO 62 % (21-46); MONOCYTES ABSOLUTE AUTO 0.08 K/mm3 (0.16-1.47); MONOCYTES PERCENT AUTO 2 % (4-13); Mean Corpuscular HGB 29.3 pg (26.0-34.0); Mean Corpuscular HGB Conc 33.5 g/dL (31.5-36.5); Mean Corpuscular Volume 87 fL (80-100); Mean Platelet Volume 9.6 fL (9.1-12.4); NEUTROPHILS ABSOLUTE AUTO 1.03 K/mm3 (1.96-9.15); NEUTROPHILS PERCENT AUTO 31 % (41-73); Platelet Count 397 K/mm3 (150-400); RDW Coefficient Variation 14.2 % (11.7-14.2); RDW Standard Deviation 45.7 fL (35.1-46.3); Red Blood Cell Count 4.37 M/mm3 (4.30-5.90); White Blood Cell Count 3.37 K/mm3 (4.00-11.30)
[2019-02-14 14:41] LABS: Alanine Aminotransfer (ALT/SGP 106 U/L (12-78); Albumin, Blood 3.4 g/dL (3.4-5.0); Albumin/Globulin Ratio 0.9 (0.8-1.8); Alk Phos 88 U/L (50-136); Anion Gap 6 mmol/L (6-16); Aspartate Aminotrans (AST/SGOT 42 U/L (12-37); Bilirubin, Total 0.6 mg/dL (0.1-1.0); Blood Urea Nitrogen 13 mg/dL (8-24); Bun/Creatinine Ratio 14.8 (12.0-20.0); CO2, Blood 28 mmol/L (21-32); Calcium, Blood 8.7 mg/dL (8.5-10.1); Chloride, Blood 103 mmol/L (98-108); Creatinine, Blood 0.88 mg/dL (0.60-1.20); Globulin, Blood 3.7 g/dL (2.2-4.0); Glomerular Filtration Rate >60 (60-); Glucose, Blood 115 mg/dL (70-99); Potassium, Blood 3.5 mmol/L (3.5-5.5); Sodium, Blood 137 mmol/L (136-145); Total Protein, Blood 7.1 g/dL (6.4-8.2); Troponin I <0.015 ng/mL (0.000-0.040)
[2019-02-14] MEDS ORDERED: IBUP800 PO (16:31)
[2019-02-16 05:09] LABS: HBSAG SCREEN Negative (Negative); HEP A AB, IGM Negative (Negative); HEP B CORE AB, IGM Negative (Negative); HEP C VIRUS AB <0.1 (0.0-0.9)
== END 2019-02-14 17:21 | disposition left against medical advice (07) ==
LOC: ER 13:42 → MEDS 16:15 → ER 17:21
PROVIDERS: Emergency Medicine
DX: R07.89 Other chest pain (principal); I95.9 Hypotension, unspecified; R74.0 Nonspecific elevation of levels of transaminase and lactic acid dehydrogenase [LDH]; R79.89 Other specified abnormal findings of blood chemistry; I25.2 Old myocardial infarction; F17.210 Nicotine dependence, cigarettes, uncomplicated; Z79.899 Other long term (current) drug therapy; Z79.82 Long term (current) use of aspirin; Z79.02 Long term (current) use of antithrombotics/antiplatelets
CPT/HCPCS: 36415; 71046; 80053; 80074; 83605; 83880; 84145; 84484; 85025; 85651; 86140; 86308; 87040; 93005; 93010; 96361; 96374; 96375; 99285-25; J0515; J1630; J2405; J7030

== ENCOUNTER 2019-10-31 20:03 | Emergency (ER) | payer MEDICARE, OTHER ==
[~2019-10-31] VITALS: Ht 180.3 cm; Wt 63.5 kg
[~2019-10-31 20:03] MED LIST changes: +IBUP800 PO
[2019-10-31] MEDS ORDERED: ACETAMINOPHEN500 MG PO (21:29)
[2019-11-01] MEDS ORDERED: Robaxin-750750 MG PO (17:35)
[2019-11-01] MEDS ORDERED: TRAM50 PO (17:35)
== END 2019-10-31 22:22 | disposition home or self-care (01) ==
LOC: ER 20:03
DX: J43.9 Emphysema, unspecified (principal); I25.2 Old myocardial infarction; Z79.82 Long term (current) use of aspirin; Z79.899 Other long term (current) drug therapy; F17.220 Nicotine dependence, chewing tobacco, uncomplicated
CPT/HCPCS: 71046; 99283-25

== ENCOUNTER 2019-11-01 16:49 | Emergency (ER) | payer MEDICARE, OTHER ==
[~2019-11-01] VITALS: Ht 180.3 cm; Wt 65.8 kg
[~2019-11-01 16:49] MED LIST changes: +ACETAMINOPHEN500 MG PO
[2019-11-01] MEDS ORDERED: Robaxin-750750 MG PO (17:35)
[2019-11-01] MEDS ORDERED: TRAM50 PO (17:35)
== END 2019-11-01 18:00 | disposition home or self-care (01) ==
LOC: ER 16:49
DX: S20.212A Contusion of left front wall of thorax, initial encounter (principal); I25.10 Atherosclerotic heart disease of native coronary artery without angina pectoris; I25.2 Old myocardial infarction; F32.9 Major depressive disorder, single episode, unspecified; F17.210 Nicotine dependence, cigarettes, uncomplicated; Z79.899 Other long term (current) drug therapy; Z79.82 Long term (current) use of aspirin; Z79.02 Long term (current) use of antithrombotics/antiplatelets; W19.XXXA Unspecified fall, initial encounter
CPT/HCPCS: 99283

== ENCOUNTER → 2020-12-25 | Outpatient (CLI) | payer MEDICARE, OTHER ==
[~2020-12-25] MED LIST changes: +Robaxin-750750 MG PO; +TRAM50 PO
[2020-12-25 16:49] LABS: Alanine Aminotransfer (ALT/SGP 26 U/L (12-78); Albumin, Blood 4.2 g/dL (3.4-5.0); Albumin/Globulin Ratio 1.1 (0.8-1.8); Alk Phos 135 U/L (50-136); Anion Gap 6 mmol/L (6-16); Aspartate Aminotrans (AST/SGOT 31 U/L (12-37); Bilirubin, Total 1.4 mg/dL (0.1-1.0); Blood Urea Nitrogen 13 mg/dL (8-24); Bun/Creatinine Ratio 14.3 (12.0-20.0); CO2, Blood 22 mmol/L (21-32); Calcium, Blood 9.2 mg/dL (8.5-10.1); Chloride, Blood 109 mmol/L (98-108); Creatinine, Blood 0.91 mg/dL (0.60-1.20); Globulin, Blood 3.7 g/dL (2.2-4.0); Glomerular Filtration Rate >60 (60-); Glucose, Blood 104 mg/dL (70-99); Potassium, Blood 4.1 mmol/L (3.5-5.5); Sodium, Blood 137 mmol/L (136-145); Total Protein, Blood 7.9 g/dL (6.4-8.2)
[2020-12-25 16:50] LABS: CHOL/HDL RATIO 4.8; Cholesterol 230 mg/dL (50-200); Free Thyroxine 1.05 ng/dL (0.70-1.60); HDL Cholesterol 48 mg/dL (>39); LDL/HDL RATIO 3.4; Low Density Lipoprotein Chol 165 mg/dL (0-110); Triglycerides 84 mg/dL (30-160); Very Low Density Lipoprot Chol 16 mg/dL (6-32)
[2020-12-25 16:51] LABS: Triiodothyronine, Free 2.59 pg/mL (2.18-3.98)
[2020-12-26 07:09] LABS: HIV SCREEN 4TH GENERATION WRFX Non Reactive (Non Reactive)
[2020-12-27 01:10] LABS: HBSAG SCREEN Negative (Negative); HEP A AB, IGM Negative (Negative); HEP B CORE AB, TOT Negative (Negative); HEP C VIRUS AB <0.1 (0.0-0.9)
== END | disposition home or self-care (01) ==
LOC: LAB 11:50 → LAB SHORT 11:50
PROVIDERS: Family Medicine
DX: Z13.228 Encounter for screening for other metabolic disorders (principal); E05.90 Thyrotoxicosis, unspecified without thyrotoxic crisis or storm; Z95.5 Presence of coronary angioplasty implant and graft; Z71.51 Drug abuse counseling and surveillance of drug abuser
CPT/HCPCS: 80053; 80061; 82306; 84439; 84443; 84481; 86592; 86704; 86708; 86803; 87340; 87389

== ENCOUNTER 2021-04-25 09:05 | Emergency (ER) | payer MEDICARE, OTHER ==
[~2021-04-25] VITALS: Ht 180.3 cm; Wt 63.5 kg
[2021-04-25 09:43] LABS: BASOPHILS ABSOLUTE AUTO 0.04 K/mm3 (0.00-0.23); BASOPHILS PERCENT AUTO 1 % (0-2); EOSINOPHILS ABSOLUTE AUTO 0.17 K/mm3 (0.00-0.68); EOSINOPHILS PERCENT AUTO 4 % (0-6); Hematocrit 40.6 % (37.0-53.0); Hemoglobin 13.7 g/dL (13.5-17.5); IMMATURE GRAN ABSOLUTE AUTO 0.01 K/mm3 (0.00-0.10); IMMATURE GRAN PERCENT AUTO 0 % (0-1); LYMPHOCYTES ABSOLUTE AUTO 1.78 K/mm3 (0.84-5.20); LYMPHOCYTES PERCENT AUTO 36 % (21-46); MONOCYTES ABSOLUTE AUTO 0.28 K/mm3 (0.16-1.47); MONOCYTES PERCENT AUTO 6 % (4-13); Mean Corpuscular HGB Conc 33.7 g/dL (31.5-36.5); Mean Corpuscular Volume 89 fL (80-100); Mean Platelet Volume 10.1 fL (9.1-12.4); NEUTROPHILS ABSOLUTE AUTO 2.63 K/mm3 (1.96-9.15); NEUTROPHILS PERCENT AUTO 54 % (41-73); Platelet Count 250 K/mm3 (150-400); RDW Coefficient Variation 13.4 % (11.7-14.2); RDW Standard Deviation 43.8 fL (35.1-46.3); Red Blood Cell Count 4.57 M/mm3 (4.30-5.90); White Blood Cell Count 4.91 K/mm3 (4.00-11.30)
[2021-04-25 10:06] LABS: Alanine Aminotransfer (ALT/SGP 21 U/L (12-78); Albumin/Globulin Ratio 1.1 (0.8-1.8); Alk Phos 127 U/L (50-136); Anion Gap 3 mmol/L (6-16); Aspartate Aminotrans (AST/SGOT 15 U/L (12-37); Blood Urea Nitrogen 17 mg/dL (8-24); Bun/Creatinine Ratio 17.3 (12.0-20.0); CO2, Blood 26 mmol/L (21-32); Calcium, Blood 9.1 mg/dL (8.5-10.1); Chloride, Blood 111 mmol/L (98-108); Creatinine, Blood 0.99 mg/dL (0.60-1.20); Globulin, Blood 3.6 g/dL (2.2-4.0); Glomerular Filtration Rate >60 (60-); Glucose, Blood 124 mg/dL (70-99); Potassium, Blood 4.5 mmol/L (3.5-5.5); Sodium, Blood 140 mmol/L (136-145); Total Protein, Blood 7.6 g/dL (6.4-8.2); Troponin I <0.015 ng/mL (0.000-0.040)
[2021-04-25] MEDS ORDERED: ALBU90OI INH (11:17)
== END 2021-04-25 12:08 | disposition home or self-care (01) ==
LOC: ER 09:05
PROVIDERS: Emergency Medicine
DX: J43.9 Emphysema, unspecified (principal); R09.1 Pleurisy; I25.10 Atherosclerotic heart disease of native coronary artery without angina pectoris; I25.2 Old myocardial infarction; F17.210 Nicotine dependence, cigarettes, uncomplicated; Z79.899 Other long term (current) drug therapy; Z79.82 Long term (current) use of aspirin
CPT/HCPCS: 36415; 71045; 80053; 84484; 85025; 93005; 93010; 94640; 94760; 96374; 99284-25; A9270; J1885; J7512

== ENCOUNTER 2021-07-19 08:37 | Emergency (ER) | payer MEDICARE, OTHER ==
[~2021-07-19] VITALS: Ht 180.3 cm; Wt 61.2 kg
[2021-07-19] MEDS ORDERED: Norco 5-325 Ta1 EACH PO (09:44)
== END 2021-07-19 09:56 | disposition home or self-care (01) ==
LOC: ER 08:37
DX: Z76.0 Encounter for issue of repeat prescription (principal); I25.10 Atherosclerotic heart disease of native coronary artery without angina pectoris; F17.210 Nicotine dependence, cigarettes, uncomplicated; Z79.82 Long term (current) use of aspirin; Z79.899 Other long term (current) drug therapy
CPT/HCPCS: 99282; A9270

== ENCOUNTER 2021-07-25 14:28 | Emergency (ER) | payer MEDICARE, OTHER ==
[~2021-07-25] VITALS: Ht 180.3 cm; Wt 63.5 kg
[~2021-07-25 14:28] MED LIST changes: +Norco 5-325 Ta1 EACH PO
[2021-07-25 15:05] LABS: BASOPHILS ABSOLUTE AUTO 0.04 K/mm3 (0.00-0.23); BASOPHILS PERCENT AUTO 1 % (0-2); EOSINOPHILS ABSOLUTE AUTO 0.09 K/mm3 (0.00-0.68); EOSINOPHILS PERCENT AUTO 2 % (0-6); Hematocrit 38.2 % (37.0-53.0); Hemoglobin 13.4 g/dL (13.5-17.5); IMMATURE GRAN ABSOLUTE AUTO 0.01 K/mm3 (0.00-0.10); IMMATURE GRAN PERCENT AUTO 0 % (0-1); LYMPHOCYTES ABSOLUTE AUTO 1.99 K/mm3 (0.84-5.20); LYMPHOCYTES PERCENT AUTO 36 % (21-46); MONOCYTES ABSOLUTE AUTO 0.34 K/mm3 (0.16-1.47); MONOCYTES PERCENT AUTO 6 % (4-13); Mean Corpuscular HGB 30.7 pg (26.0-34.0); Mean Corpuscular HGB Conc 35.1 g/dL (31.5-36.5); Mean Corpuscular Volume 88 fL (80-100); Mean Platelet Volume 10.5 fL (9.1-12.4); NEUTROPHILS PERCENT AUTO 56 % (41-73); Platelet Count 248 K/mm3 (150-400); RDW Coefficient Variation 13.2 % (11.7-14.2); RDW Standard Deviation 42.5 fL (35.1-46.3); Red Blood Cell Count 4.36 M/mm3 (4.30-5.90); White Blood Cell Count 5.57 K/mm3 (4.00-11.30)
[2021-07-25 15:48] LABS: Alanine Aminotransfer (ALT/SGP 20 U/L (12-78); Albumin, Blood 3.8 g/dL (3.4-5.0); Albumin/Globulin Ratio 1.1 (0.8-1.8); Alk Phos 120 U/L (50-136); Anion Gap 6 mmol/L (6-16); Aspartate Aminotrans (AST/SGOT 14 U/L (12-37); Blood Urea Nitrogen 11 mg/dL (8-24); Bun/Creatinine Ratio 11.6 (12.0-20.0); CO2, Blood 25 mmol/L (21-32); Chloride, Blood 109 mmol/L (98-108); Creatinine, Blood 0.95 mg/dL (0.60-1.20); Globulin, Blood 3.4 g/dL (2.2-4.0); Glomerular Filtration Rate >60 (60-); Glucose, Blood 126 mg/dL (70-99); Potassium, Blood 3.7 mmol/L (3.5-5.5); Sodium, Blood 140 mmol/L (136-145); Total Protein, Blood 7.2 g/dL (6.4-8.2)
[2021-07-25] MEDS ORDERED: Norco 5-325 Ta1 EACH PO (17:40)
== END 2021-07-25 18:21 | disposition home or self-care (01) ==
LOC: ER 14:28
PROVIDERS: Physician Assistant
DX: J43.9 Emphysema, unspecified (principal); I25.2 Old myocardial infarction; F17.220 Nicotine dependence, chewing tobacco, uncomplicated; Z79.899 Other long term (current) drug therapy
CPT/HCPCS: 36415; 71045; 80053; 83690; 83880; 84484; 85025; 93005; 93010; 99284-25; A9270

== ENCOUNTER 2022-08-27 11:40 | Emergency (ER) | payer MEDICARE, OTHER ==
[~2022-08-27] VITALS: Ht 177.8 cm; Wt 59.0 kg
[2022-08-27 12:10] LABS: BASOPHILS ABSOLUTE AUTO 0.03 K/mm3 (0.00-0.23); BASOPHILS PERCENT AUTO 1 % (0-2); EOSINOPHILS ABSOLUTE AUTO 0.17 K/mm3 (0.00-0.68); EOSINOPHILS PERCENT AUTO 4 % (0-6); Hematocrit 36.9 % (37.0-53.0); IMMATURE GRAN ABSOLUTE AUTO 0.01 K/mm3 (0.00-0.10); IMMATURE GRAN PERCENT AUTO 0 % (0-1); LYMPHOCYTES ABSOLUTE AUTO 1.71 K/mm3 (0.84-5.20); LYMPHOCYTES PERCENT AUTO 35 % (21-46); MONOCYTES PERCENT AUTO 4 % (4-13); Mean Corpuscular HGB 30.2 pg (26.0-34.0); Mean Corpuscular HGB Conc 35.2 g/dL (31.5-36.5); Mean Corpuscular Volume 86 fL (80-100); Mean Platelet Volume 10.3 fL (9.1-12.4); NEUTROPHILS PERCENT AUTO 57 % (41-73); Platelet Count 222 K/mm3 (150-400); RDW Standard Deviation 40.6 fL (35.1-46.3); White Blood Cell Count 4.92 K/mm3 (4.00-11.30)
[2022-08-27 12:23] LABS: Albumin, Blood 3.8 g/dL (3.4-5.0); Albumin/Globulin Ratio 1.1 (0.8-1.8); Bilirubin, Total 0.9 mg/dL (0.1-1.0); Creatinine, Blood 0.82 mg/dL (0.60-1.20); Globulin, Blood 3.5 g/dL (2.2-4.0); Potassium, Blood 3.7 mmol/L (3.5-5.5); Total Protein, Blood 7.3 g/dL (6.4-8.2)
== END 2022-08-27 13:28 | disposition home or self-care (01) ==
LOC: ER 11:40
PROVIDERS: Emergency Medicine
DX: G45.9 Transient cerebral ischemic attack, unspecified (principal); I25.2 Old myocardial infarction; F17.220 Nicotine dependence, chewing tobacco, uncomplicated; Z79.899 Other long term (current) drug therapy; Z79.82 Long term (current) use of aspirin
CPT/HCPCS: 70450; 80053; 84484; 85025; 93005; 93010

== ENCOUNTER 2022-09-30 03:38 | Observation (INO) | payer MEDICARE, OTHER ==
[~2022-09-30] VITALS: Ht 180.3 cm; Wt 56.1 kg
[2022-09-30 03:53] LABS: BASOPHILS ABSOLUTE AUTO 0.03 K/mm3 (0.00-0.23); BASOPHILS PERCENT AUTO 1 % (0-2); EOSINOPHILS ABSOLUTE AUTO 0.18 K/mm3 (0.00-0.68); EOSINOPHILS PERCENT AUTO 3 % (0-6); Hematocrit 37.8 % (37.0-53.0); Hemoglobin 13.1 g/dL (13.5-17.5); IMMATURE GRAN ABSOLUTE AUTO 0.01 K/mm3 (0.00-0.10); IMMATURE GRAN PERCENT AUTO 0 % (0-1); LYMPHOCYTES ABSOLUTE AUTO 1.63 K/mm3 (0.84-5.20); LYMPHOCYTES PERCENT AUTO 29 % (21-46); MONOCYTES ABSOLUTE AUTO 0.25 K/mm3 (0.16-1.47); MONOCYTES PERCENT AUTO 5 % (4-13); Mean Corpuscular HGB 29.8 pg (26.0-34.0); Mean Corpuscular HGB Conc 34.7 g/dL (31.5-36.5); Mean Corpuscular Volume 86 fL (80-100); Mean Platelet Volume 10.1 fL (9.1-12.4); NEUTROPHILS ABSOLUTE AUTO 3.45 K/mm3 (1.96-9.15); NEUTROPHILS PERCENT AUTO 62 % (41-73); Platelet Count 219 K/mm3 (150-400); RDW Coefficient Variation 13.1 % (11.7-14.2); RDW Standard Deviation 41.1 fL (35.1-46.3); White Blood Cell Count 5.55 K/mm3 (4.00-11.30)
[2022-09-30 04:11] LABS: Albumin, Blood 3.9 g/dL (3.4-5.0); Albumin/Globulin Ratio 1.2 (0.8-1.8); Bilirubin, Total 1.2 mg/dL (0.1-1.0); Bun/Creatinine Ratio 18.5 (12.0-20.0); Calcium, Blood 9.2 mg/dL (8.5-10.1); Creatinine, Blood 0.81 mg/dL (0.60-1.20); Globulin, Blood 3.3 g/dL (2.2-4.0); Total Protein, Blood 7.2 g/dL (6.4-8.2)
[2022-09-30 08:45] VITALS: BP 152/92
[2022-09-30] MEDS ORDERED: HYDROCODONE-AC1 EA10 PO (09:54)
[2022-09-30 14:53] VITALS: BP 173/104
--- NOTE | 2022-09-30 16:02 | NUR ---
PT TRANSFERRED TO ROOM 329 FROM WHEELCHAIR TO BED, PT ABLE TO AMBULATE STEADY ON FEET. ORIENTED TO ROOM SET UP AND CALL LIGHT. STATES MILD HEADACHE AND BLACK FLOATER IN R EYE, THIS IS NOLY NEURO DEFICIT CURRENTLY. PLAN FOR MRI FOR FURTHER NERUO WORKUP. PT HUNGRY GETTING HIM FOOD.
--- NOTE | 2022-09-30 18:43 | NUR ---
SUMMARY- PT A/O X4, INDEPENDANT IN ROOM. ONLY NEURO DEFICIT IS MILD HEADACHE THIS AM, WHICH HAS SINCE RESOLVED. AND BLACK FLOATER IN R SIDE. SPEECH AND SWALLOW INTACT. AMBULATES STEADY. ECHO AND MRI DONE. CALLED [facility] AT 1800, TO SEE IF PT COULD GO HOME. PT IS TO STAY THE NIGHT AND REEVAL IN THE AM. PT DECLINED COREG, STATES HE HAS NOT USED IT FOR A LONG TIME. DR SON OK'D DC OF MEDICATION. WILL EVAL FOR FURTHER NEED OF BP MED.
[2022-09-30 20:10] VITALS: BP 171/93
--- NOTE | 2022-10-01 04:13 | NUR ---
SHIFT UNREMARKABLE. PT TOOK 2100 MEDICATIONS WITHOUT DIFFICULTY AND HAS SLEPT THROUGH REMAINDER OF SHIFT. REPORTED BLACK FLOATING SPOT IN R VISION ON ASSESSMENT BUT NO OTHER NEUROLOGICAL SYMPTOMS WERE PRESENT. STRENGTH EQUAL BILATERALLY. CALLS APPROPRIATELY. AOX4, PLEASANT AND COOPERATIVE WITH CARE. BED LOCKED IN LOWEST POSITION. CALL LIGHT LEFT WITHIN REACH.
[2022-10-01 04:33] VITALS: BP 125/86
[2022-10-01 05:47] LABS: BASOPHILS ABSOLUTE AUTO 0.04 K/mm3 (0.00-0.23); BASOPHILS PERCENT AUTO 1 % (0-2); EOSINOPHILS ABSOLUTE AUTO 0.13 K/mm3 (0.00-0.68); EOSINOPHILS PERCENT AUTO 2 % (0-6); Hematocrit 40.9 % (37.0-53.0); Hemoglobin 13.9 g/dL (13.5-17.5); IMMATURE GRAN ABSOLUTE AUTO 0.01 K/mm3 (0.00-0.10); IMMATURE GRAN PERCENT AUTO 0 % (0-1); LYMPHOCYTES ABSOLUTE AUTO 2.14 K/mm3 (0.84-5.20); LYMPHOCYTES PERCENT AUTO 35 % (21-46); MONOCYTES ABSOLUTE AUTO 0.46 K/mm3 (0.16-1.47); MONOCYTES PERCENT AUTO 7 % (4-13); Mean Corpuscular HGB 29.7 pg (26.0-34.0); Mean Corpuscular Volume 87 fL (80-100); Mean Platelet Volume 10.5 fL (9.1-12.4); NEUTROPHILS ABSOLUTE AUTO 3.42 K/mm3 (1.96-9.15); NEUTROPHILS PERCENT AUTO 55 % (41-73); Platelet Count 242 K/mm3 (150-400); RDW Coefficient Variation 13.1 % (11.7-14.2); RDW Standard Deviation 42.2 fL (35.1-46.3); Red Blood Cell Count 4.68 M/mm3 (4.30-5.90)
[2022-10-01 06:04] LABS: Free Thyroxine 0.92 ng/dL (0.70-1.60); Magnesium, Blood 1.9 mg/dL (1.6-2.4)
[2022-10-01 06:10] LABS: Albumin/Globulin Ratio 1.1 (0.8-1.8); Bilirubin, Total 1.9 mg/dL (0.1-1.0); Bun/Creatinine Ratio 14.6 (12.0-20.0); Creatinine, Blood 0.89 mg/dL (0.60-1.20); Globulin, Blood 3.6 g/dL (2.2-4.0); Potassium, Blood 3.6 mmol/L (3.5-5.5); Thyroid Stimulating Hormone 2.39 uIU/mL (0.360-4.800); Total Protein, Blood 7.6 g/dL (6.4-8.2)
[2022-10-01 07:35] VITALS: BP 128/94
[2022-10-01] MEDS ORDERED: CLOP75 PO (13:19)
[2022-10-01] MEDS ORDERED: METO25 PO (13:20)
[2022-10-01] MEDS ORDERED: Prinivil10 MG PO (13:20)
--- NOTE | 2022-10-01 15:40 | NUR ---
PT DISCHARGED 1530 WITH INSTRUCTIONS. WILL FOLLOW UP WITH NEURO. RX FAXED TO [facility]. PT AMBULATED OUTSIDE WITH FREIND TO PRIVATE CAR FOR [place] HOME- DECLINED WHEELCHAIR
--- NOTE | 2022-10-02 09:30 | NUR ---
Pt called for clarification- Pt noted his chronic pain medication was dc'd on his home med list. Spoke to the pt about calling his pain management md today to discuss his pain medication needs as the pt is on an out pt pain contract. Pt agreed and is going to speak to his pain management md.
== END 2022-10-01 15:35 | disposition home or self-care (01) ==
LOC: ER 03:38 → MEDS 03:39 → ENPENDDIS 10-01 12:04 → MEDS 10-01 15:35
PROVIDERS: Student in an Organized Health Care Education/Training Program; ADMIT Student in an Organized Health Care Education/Training Program
DX: I63.539 Cerebral infarction due to unspecified occlusion or stenosis of unspecified posterior cerebral artery (principal); R20.2 Paresthesia of skin; R20.0 Anesthesia of skin; I25.10 Atherosclerotic heart disease of native coronary artery without angina pectoris; J43.9 Emphysema, unspecified; I25.2 Old myocardial infarction; F17.220 Nicotine dependence, chewing tobacco, uncomplicated; Z79.82 Long term (current) use of aspirin; Z86.73 Personal history of transient ischemic attack (TIA), and cerebral infarction without residual deficits
CPT/HCPCS: 36415; 70450; 70496; 70498; 70551; 80053; 83735; 84439; 84443; 85025; 92610; 93005; 93010; 93306; 96361; 96372; 96374-59; 96375-59; 97161; 99285-25; A9270; G0378; J1650; J1790; J2765; J7030; Q9967

== ENCOUNTER → 2022-10-08 | Outpatient (CLI) | payer MEDICARE, OTHER ==
[~2022-10-08] MED LIST changes: +HYDROCODONE-AC1 EA10 PO; +METO25 PO; +Prinivil10 MG PO
[2022-10-08 23:54] LABS: Free Thyroxine 1.03 ng/dL (0.70-1.60); Thyroid Stimulating Hormone 2.64 uIU/mL (0.360-4.800); Triiodothyronine, Free 2.95 pg/mL (2.18-3.98)
== END | disposition home or self-care (01) ==
LOC: LAB SHORT 14:15 → LAB 14:15
PROVIDERS: Family Medicine
DX: R63.6 Underweight (principal)
CPT/HCPCS: 84439; 84443; 84481

== ENCOUNTER 2023-03-06 03:04 | Emergency (ER) | payer MEDICARE, OTHER ==
[~2023-03-06] VITALS: Ht 180.3 cm; Wt 68.0 kg
[2023-03-06 03:26] LABS: BASOPHILS ABSOLUTE AUTO 0.04 K/mm3 (0.00-0.23); BASOPHILS PERCENT AUTO 1 % (0-2); EOSINOPHILS ABSOLUTE AUTO 0.08 K/mm3 (0.00-0.68); EOSINOPHILS PERCENT AUTO 1 % (0-6); Hematocrit 36.6 % (37.0-53.0); Hemoglobin 12.6 g/dL (13.5-17.5); IMMATURE GRAN ABSOLUTE AUTO 0.02 K/mm3 (0.00-0.10); IMMATURE GRAN PERCENT AUTO 0 % (0-1); LYMPHOCYTES ABSOLUTE AUTO 0.27 K/mm3 (0.84-5.20); LYMPHOCYTES PERCENT AUTO 5 % (21-46); MONOCYTES ABSOLUTE AUTO 0.51 K/mm3 (0.16-1.47); MONOCYTES PERCENT AUTO 9 % (4-13); Mean Corpuscular HGB 29.6 pg (26.0-34.0); Mean Corpuscular HGB Conc 34.4 g/dL (31.5-36.5); Mean Corpuscular Volume 86 fL (80-100); Mean Platelet Volume 10.5 fL (9.1-12.4); NEUTROPHILS PERCENT AUTO 83 % (41-73); Platelet Count 216 K/mm3 (150-400); RDW Standard Deviation 40.6 fL (35.1-46.3); Red Blood Cell Count 4.26 M/mm3 (4.30-5.90); White Blood Cell Count 5.52 K/mm3 (4.00-11.30)
[2023-03-06 03:45] LABS: Albumin, Blood 3.9 g/dL (3.4-5.0); Albumin/Globulin Ratio 1.1 (0.8-1.8); Bilirubin, Total 1.2 mg/dL (0.1-1.0); Bun/Creatinine Ratio 12.4 (12.0-20.0); Calcium, Blood 8.8 mg/dL (8.5-10.1); Creatinine, Blood 0.97 mg/dL (0.60-1.20); Globulin, Blood 3.5 g/dL (2.2-4.0); Potassium, Blood 4.5 mmol/L (3.5-5.5); Total Protein, Blood 7.4 g/dL (6.4-8.2)
[2023-03-06 04:51] LABS: Adenovirus Not Detected (NOT DETECT); Coronavirus 229E Not Detected (NOT DETECT); Coronavirus HKU1 Not Detected (NOT DETECT); Coronavirus NL63 Not Detected (NOT DETECT); Coronavirus OC43 Not Detected (NOT DETECT)
[2023-03-06 04:52] LABS: Bordetella pertussis Not Detected (NOT DETECT); Chlamydophila pneumoniae Not Detected (NOT DETECT); Human Metapneumovirus Not Detected (NOT DETECT); Human Rhinovirus/Enterovirus Not Detected (NOT DETECT); Influenza A/2009-H1 Not Detected (NOT DETECT); Influenza A/H1 Not Detected (NOT DETECT); Influenza A/H3 Not Detected (NOT DETECT); Influenza B Not Detected (NOT DETECT); Mycoplasma pneumoniae Not Detected (NOT DETECT); Parainfluenza Virus 1 Not Detected (NOT DETECT); Parainfluenza Virus 2 Not Detected (NOT DETECT); Parainfluenza Virus 3 Not Detected (NOT DETECT); Parainfluenza Virus 4 Not Detected (NOT DETECT); Respiratory Syncytial Virus Not Detected (NOT DETECT); SARS-Cov-2 (COVID-19), BioFire Detected (NOT DETECT)
[2023-03-06] MEDS ORDERED: Ibuprofen600 MG PO (05:55)
[2023-03-06] MEDS ORDERED: ACET500 PO (05:55)
[2023-03-06 06:12] VITALS: BP 129/91
== END 2023-03-06 06:15 | disposition home or self-care (01) ==
LOC: ER 03:04
PROVIDERS: Emergency Medicine
DX: U07.1 COVID-19 (principal); I25.10 Atherosclerotic heart disease of native coronary artery without angina pectoris; I25.2 Old myocardial infarction; F17.220 Nicotine dependence, chewing tobacco, uncomplicated
CPT/HCPCS: 0202U; 71046; 76705; 80053; 84484; 85025; 93005; 93010; 96374; 99285-25; J1885; J7030